=== PATIENT | male | born 1935 | race American Indian/Alaskan Native ===

== ENCOUNTER 2018-01-19 12:52 | Inpatient (IN) | payer MEDICARE ==
--- NOTE | 2018-01-19 13:59 | XRay Report ---
ROUTINE CHEST, TWO VIEWS: HISTORY: Short of breath. Cardiomegaly, pulmonary venous congestion and small bilateral pleural effusions are identified. There is no obvious pneumonia or pneumothorax. 2-lead pacemaker device is in place. The bony structures are grossly intact. IMPRESSION: Mild CHF.
[2018-01-19 14:18] LABS: Basophils % (Auto) 0.5 % (0.0-1.8); Eosinophils % (Auto) 0.1 % (0.0-4.3); Hematocrit 32.3 % (35.5-45.6); Hemoglobin 10.1 gm/dl (11.8-15.2); Lymphocytes # (Auto) 0.7 K/mm3 (1.2-5.4); Lymphocytes % (Auto) 13.3 % (13.4-35.0); Mean Corpuscular HGB Conc 31 % (32-34); Mean Corpuscular Volume 72 fl (84-94); Monocytes # (Auto) 0.6 K/mm3 (0.0-0.8); Monocytes % (Auto) 11.3 % (0.0-7.3); Platelet Count 149 K/mm3 (140-440)
[2018-01-19 14:19] LABS: Mean Corpuscular Hemoglobin 23 pg (28-32); Red Cell Distribution Width 20.5 % (13.2-15.2)
[2018-01-19 14:33] LABS: Calcium 8.5 mg/dL (8.4-10.2)
[2018-01-19 14:57] LABS: Chol/HDL Ratio 1.71 %
--- NOTE | 2018-01-19 15:15 | Emergency Department Report ---
ED Shortness of Breath HPI - General Chief Complaint: Dyspnea/Respdistress Stated Complaint: SOB/SWELLING Time Seen by Provider: 01/19/18 15:00 Source: patient, family, old records reviewed (no recent cardiac evaluation on Pharminox) Mode of arrival: Wheelchair Limitations: No Limitations - History of Present Illness Initial Comments: 82-year-old male with a past smoker history of hypertension, diabetes, sleep apnea, atrial fibrillation and arthritis presents to the hospital with complaints of generalized edema and dyspnea on exertion 1.5 weeks. Patient has been compliant with all his medications including Coumadin and diuretic. Seen and evaluated by Dr. Rosy Navarro (cards) and sent to the ER for cardiology evaluation. No chest pain reported. Dry cough reported without fever. - Related Data Home Medications Medication Instructions Recorded Confirmed Last Taken Aspirin EC [Aspirin Enteric Coated 81 mg PO DAILY 10/18/14 10/18/14 10/17/14 TAB] Atorvastatin [Lipitor] 40 mg PO DAILY 10/18/14 10/18/14 10/17/14 Carvedilol 25 mg PO BID 10/18/14 10/18/14 10/17/14 Docusate Sodium [Colace CAP] 100 mg PO PRN PRN 10/18/14 10/18/14 10/17/14 Esomeprazole Magnesium [NexIUM] 40 mg PO DAILY 10/18/14 10/18/14 10/17/14 Hydralazine HCl [Apresoline TAB] 25 mg PO TID 10/18/14 10/18/14 10/17/14 Insulin Glargine,Hum.rec.anlog 40 units SQ QPM 10/18/14 10/18/14 10/17/14 [Lantus] Potassium Chloride [Klor-Con M10] 10 meq PO DAILY 10/18/14 10/18/14 10/17/14 Warfarin Sodium 5 mg PO DAILY 10/18/14 10/18/14 10/14/14 amLODIPine/VALSARTAN [Exforge 1 each PO DAILY 10/18/14 10/18/14 10/17/14 10-320 mg Tablet] Allergies Allergy/AdvReac Type Severity Reaction Status Date / Time Penicillins Allergy Hives Verified 10/18/14 15:28 ED Review of Systems ROS: Stated complaint: SOB/SWELLING Other details as noted in HPI Comment: All other systems reviewed and negative ED Past Medical Hx - Past Medical History Hx Hypertension: Yes Hx Congestive Heart Failure: Yes Hx Diabetes: Yes (oral and insulin) Hx GERD: Yes Hx Arthritis: Yes Hx Seizures: No Hx HIV: No Additional medical history: 2l home o2. afib - Surgical History Past Surgical History?: No - Social History Smoking Status: Never Smoker Substance Use Type: None - Medications Home Medications: Home Medications Medication Instructions Recorded Confirmed Last Taken Type Aspirin EC [Aspirin Enteric Coated 81 mg PO DAILY 10/18/14 10/18/14 10/17/14 History TAB] Atorvastatin [Lipitor] 40 mg PO DAILY 10/18/14 10/18/14 10/17/14 History Carvedilol 25 mg PO BID 10/18/14 10/18/14 10/17/14 History Docusate Sodium [Colace CAP] 100 mg PO PRN PRN 10/18/14 10/18/14 10/17/14 History Esomeprazole Magnesium [NexIUM] 40 mg PO DAILY 10/18/14 10/18/14 10/17/14 History Hydralazine HCl [Apresoline TAB] 25 mg PO TID 10/18/14 10/18/14 10/17/14 History Insulin Glargine,Hum.rec.anlog 40 units SQ QPM 10/18/14 10/18/14 10/17/14 History [Lantus] Potassium Chloride [Klor-Con M10] 10 meq PO DAILY 10/18/14 10/18/14 10/17/14 History Warfarin Sodium 5 mg PO DAILY 10/18/14 10/18/14 10/14/14 History amLODIPine/VALSARTAN [Exforge 1 each PO DAILY 10/18/14 10/18/14 10/17/14 History 10-320 mg Tablet] ED Physical Exam - General Limitations: No Limitations - Other Other exam information: General: No limitations, patient is alert in no acute distress Head exam: Atraumatic, normocephalic Eyes exam: Normal appearance ENT: Moist mucous membrane, normal oropharynx Neck exam: Normal inspection, full range of motion, no meningismus nontender Respiratory exam: Positive crackles at the bases without tachypnea or accessory muscle use Cardiovascular: Normal rate and rhythm, normal heart sounds Abdomen: Soft, nondistended, and nontender, with normal bowel sounds, no rebound, or guarding : Testicular scrotal edema, uncircumcised with penile edema, no tendernesss Extremity: Full range of motion, left arm edema> right with dilated superficial vessels. Bilateral lower extremity pitting edema 2+. Back: Normal Inspection, full range of motion, no tenderness Neurologic: Alert, oriented x3, cranial nerves intact, no motor or sensory deficit Psychiatric: normal affect, normal mood Skin: Warm, dry, intact ED Course Vital Signs 01/19/18 01/19/18 01/19/18 13:12 14:59 15:00 Temperature 98.4 F Pulse Rate 71 65 102 H Respiratory 16 14 12 Rate Blood Pressure 151/71 Blood Pressure [Right] O2 Sat by Pulse 97 Oximetry 01/19/18 01/19/18 01/19/18 15:15 15:16 15:45 Temperature 97.6 F Pulse Rate 67 66 Respiratory 15 66 H 11 L Rate Blood Pressure 153/85 143/79 Blood Pressure 153/85 [Right] O2 Sat by Pulse 98 Oximetry 01/19/18 16:15 Temperature Pulse Rate 76 Respiratory 15 Rate Blood Pressure 163/70 Blood Pressure [Right] O2 Sat by Pulse Oximetry - Reevaluation(s) Reevaluation #1: 01/19/18 15:36 lasix 40mg x 1 initiated - Consultations Consultation #1: 01/19/18 15:19 case d/w Elizabeth Byrd (cards) will consult ED Medical Decision Making - Lab Data Result diagrams: 01/19/18 13:53 01/19/18 16:49 - EKG Data -: EKG Interpreted by Me (afib, low voltage) EKG shows normal: axis, intervals (qrs -42), QRS complexes (qrsd 480), ST-T waves (no stemi) Rate: normal (68) - EKG Data When compared to previous EKG there are: previous EKG unavailable - Radiology Data Radiology results: report reviewed ROUTINE CHEST, TWO VIEWS: HISTORY: Short of breath. Cardiomegaly, pulmonary venous congestion and small bilateral pleural effusions are identified. There is no obvious pneumonia or pneumothorax. 2-lead pacemaker device is in place. The bony structures are grossly intact. IMPRESSION: Mild CHF. - Medical Decision Making sob/chf exacerbation Patient denies being told that he needs to restrict his diet He appears to be taking his diuretic when necessary as directed by PCP Lasix 40 mg IV initiated Borderline renal function At risk of worsening with aggressive diuresis Elevated troponin Repeat will be necessary Patient denies chest pain No STEMI on EKG asa not given since pt is on coumadin A. fib Chronic, rate controlled On Coumadin with therapeutic inr Hypoglycemia Patient without change in mental status D50 IV and meal provided repeat glucose improved Cardiology consulted and aware of patient prior to arrival. - Differential Diagnosis CHF, bronchitis, pneumonia, renal failure, liver failure, [place] Critical Care Time: No Critical care attestation.: If time is entered above; I have spent that time in minutes in the direct care of this critically ill patient, excluding procedure time. ED Disposition Clinical Impression: CHF exacerbation, Diabetes, Elevated troponin, HTN (hypertension), Anticoagulation goal of INR 2 to 3, Chronic atrial fibrillation, Edema Disposition: OP ADMIT IP TO THIS HOSP Is pt being admited?: Yes Condition: Stable Time of Disposition: 15:22 (Dr alvarez/tiffanie)
[2018-01-19] MEDS ORDERED: LASIX IV ONE (15:36)
[2018-01-19] MEDS ORDERED: D50W (25GM) Vial IV ONE (15:44)
[2018-01-19] MEDS ORDERED: D50W (25GM) Syringe IV ONE (15:45)
[2018-01-19 15:52] LABS: INR 2.59 (0.87-1.13); Partial Thromboplastin Time 43.7 Sec. (24.2-36.6)
--- NOTE | 2018-01-19 16:04 | Consultation ---
History of Present Illness Consult date: 01/19/18 Requesting physician: JOSE EDUARDO RALPH Consult reason: congestive heart failure History of present illness: The pt is an 82 YO male with a past medical history significant for chronic systolic heart failure, nonischemic cardiomyopathy, chronic atrial fibrillation , anticoagulated with coumadin, PPM in situ, HTN, HLP, chronic respiratory failure, on home O2, dementia. He is followed in our office by Dr. Navarro. Pt presented to our office today with complaints of progressively worsening SOB, BLE swelling and scrotal swelling for the past 1.5 weeks. Pt was seen by Dr. Navarro and was referred to ED for further eval/management of acute on chronic systolic heart failure. On evaluation, pt denies any chest pain, palpitations, n /v, diaphoresis, dizziness or syncope. Echo done 06/2016 showed EF 40-45%, RV mildly enlarged, mild AR, mod MR, mod TR. LHC done 03/2010 showed mild LI, EF 30-35%. Past History Past Medical History: atrial fib, heart failure, hypertension, hyperlipidemia Past Surgical History: Other (PPM ) Social history: denies: smoking, alcohol abuse, prescription drug abuse Medications and Allergies Allergies Allergy/AdvReac Type Severity Reaction Status Date / Time Penicillins Allergy Hives Verified 10/18/14 15:28 Home Medications Medication Instructions Recorded Confirmed Last Taken Type Aspirin EC [Aspirin Enteric Coated 81 mg PO DAILY 10/18/14 10/18/14 10/17/14 History TAB] Atorvastatin [Lipitor] 40 mg PO DAILY 10/18/14 10/18/14 10/17/14 History Carvedilol 25 mg PO BID 10/18/14 10/18/14 10/17/14 History Docusate Sodium [Colace CAP] 100 mg PO PRN PRN 10/18/14 10/18/14 10/17/14 History Esomeprazole Magnesium [NexIUM] 40 mg PO DAILY 10/18/14 10/18/14 10/17/14 History Hydralazine HCl [Apresoline TAB] 25 mg PO TID 10/18/14 10/18/14 10/17/14 History Insulin Glargine,Hum.rec.anlog 40 units SQ QPM 10/18/14 10/18/14 10/17/14 History [Lantus] Potassium Chloride [Klor-Con M10] 10 meq PO DAILY 10/18/14 10/18/14 10/17/14 History Warfarin Sodium 5 mg PO DAILY 10/18/14 10/18/14 10/14/14 History amLODIPine/VALSARTAN [Exforge 1 each PO DAILY 10/18/14 10/18/14 10/17/14 History 10-320 mg Tablet] Review of Systems Constitutional: no fever, no chills Ears, nose, mouth and throat: no ear pain, no nose pain Cardiovascular: orthopnea (chronic ), edema (BLE and BUE), shortness of breath, dyspnea on exertion, paroxysmal nocturnal dyspnea, high blood pressure, leg edema, decreased exercise tolerance, no chest pain, no palpitations, no rapid/ irregular heart beat, no syncope, no lightheadedness Respiratory: shortness of breath, dyspnea on exertion, no cough, no congestion, no wheezing, no pain on inspiration Gastrointestinal: no abdominal pain, no nausea, no vomiting, no diarrhea, no constipation, no change in bowel habits Genitourinary Male: other (scrotal edema), no dysuria, no hematuria, no flank pain, no discharge, no urinary frequency, no urinary hesitancy Musculoskeletal: no neck stiffness, no neck pain Integumentary: no rash, no pruritis Neurological: no head injury, no paralysis, no weakness Psychiatric: no anxiety Endocrine: no cold intolerance, no heat intolerance Hematologic/Lymphatic: no easy bruising, no easy bleeding Allergic/Immunologic: no urticaria, no wheezing, no persistent infections Physical Examination Vital Signs Temp Pulse Resp BP Pulse Ox 98.4 F 71 16 151/71 97 01/19/18 13:12 01/19/18 13:12 01/19/18 13:12 01/19/18 13:12 01/19/18 13:12 General appearance: no acute distress HEENT: Positive: PERRL, Normocephaly, Mucus Membranes Moist Neck: Positive: neck supple, trachea midline Cardiac: Positive: irregularly irregular, S1/S2, Systolic Murmur Lungs: Positive: Decreased Breath Sounds Neuro: Positive: Grossly Intact Abdomen: Positive: Soft. Negative: Tender Male genitourinary: Positive: scrotal edema Skin: Negative: Wound Extremities: Present: +3 Edema (BLE pitting) Results 01/19/18 13:53 01/19/18 13:53 Coagulation 01/19/18 Range/Units 15:30 PT 29.5 H (12.2-14.9) Sec. INR 2.59 H (0.87-1.13) APTT 43.7 H (24.2-36.6) Sec. Lipids 01/19/18 Range/Units 13:53 Triglycerides 51 (2-149) mg/dL Cholesterol 89 (50-199) mg/dL HDL Cholesterol 52 (40-59) mg/dL Cholesterol/HDL Ratio 1.71 % CBC 01/19/18 Range/Units 13:53 WBC 4.9 (4.5-11.0) K/mm3 RBC 4.50 (3.65-5.03) M/mm3 Hgb 10.1 L (11.8-15.2) gm/dl Hct 32.3 L (35.5-45.6) % Plt Count 149 (140-440) K/mm3 Lymph # 0.7 L (1.2-5.4) K/mm3 [place] # 0.6 (0.0-0.8) K/mm3 Eos # 0.0 (0.0-0.4) K/mm3 Baso # 0.0 (0.0-0.1) K/mm3 Comprehensive Metabolic Panel 01/19/18 Range/Units 13:53 Sodium 145 (137-145) mmol/L Potassium 4.2 (3.6-5.0) mmol/L Chloride 104.1 (98-107) mmol/L Carbon Dioxide 24 (22-30) mmol/L BUN 47 H (9-20) mg/dL Creatinine 1.5 (0.8-1.5) mg/dL Glucose 58 L (75-100) mg/dL Calcium 8.5 (8.4-10.2) mg/dL - Imaging and Cardiology Echo: pending, report reviewed ( 06/2016 showed EF 40-45%, RV mildly enlarged, mild AR, mod MR, mod TR. ) Cardiac cath: report reviewed (C done 03/2010 showed mild LI, EF 30-35%. ) EKG: report reviewed, image reviewed EKG interpretations - Telemetry EKG Rhythm: Atrial Fibrillation - EKG Supraventricular dysrhythmia: atrial fibrillation Assessment and Plan Assessment: Acute on chronic systolic heart failure Nonischemic cardiomyopathy Elevated troponin x 1 set Chronic atrial fibrillation with CVR - anticoagulated with coumadin PPM in situ HTN HLP Chronic respiratory failure, on home O2 Dementia Plan: Resume home cardiac regimen. Continue diuresis with IV lasix. Obtain echo. Cont to trend Gerri. Repeat EKG in AM. Assessment and plan reviewed with pt and pt's family member at bedside. The patient has been seen in conjunction with Dr. Dominguez who agrees with the assessment and plan of care.
--- NOTE | 2018-01-19 16:48 | History and Physical Report ---
History of Present Illness Chief complaint: I cant breathe, and im swollen History of present illness: 82 YO Female with Systolic CHF, HTN, HLD, Obesity, Chronic Respiratory Failure on Home Oxygen, Atrial Fib on therapeutic anticoagulation, presents to ED for evaluation. Pt states that he has experienced shortness of breath, as well as leg swelling and scrotal swelling over the past 10 days with worsening symptoms over the past 5 days. Pt was seen and evaluated in his cardiologists office and was found to have CHF decompensation, and was sent to [facility] for further care and evaluation. Pt seen and evaluated in ED and found to have CHF decompensation, as well as Acute Respiratory failure. Pt Denies fever, chills, CP, Palpitations , NVE, Trauma, falls, syncope, productive cough, or recent ill contacts. Cardiology consulted in ED. Pt admitted to telemetry. Pt daughter at bedside. Discussed patient prognosis, and care plan with patient and daughter. Pt daughter also informed of Code status, and End of Life care. Pt desires to be a Full Code. Past History Past Medical History: atrial fib, heart failure, hypertension, hyperlipidemia Past Surgical History: Other (PPM ) Social history: denies: smoking, alcohol abuse, prescription drug abuse Family history: hypertension Medications and Allergies Allergies Allergy/AdvReac Type Severity Reaction Status Date / Time Penicillins Allergy Hives Verified 10/18/14 15:28 Home Medications Medication Instructions Recorded Confirmed Last Taken Type Aspirin EC [Aspirin Enteric Coated 81 mg PO DAILY 10/18/14 01/19/18 10/17/14 History TAB] Esomeprazole Magnesium [NexIUM] 40 mg PO DAILY 10/18/14 01/19/18 01/19/18 History Hydralazine HCl [Apresoline TAB] 25 mg PO TID 10/18/14 01/19/18 01/19/18 History Potassium Chloride [Klor-Con M10] 10 meq PO DAILY 10/18/14 01/19/18 10/17/14 History amLODIPine/VALSARTAN [Exforge 1 each PO QAM 10/18/14 01/19/18 10/17/14 History 10-320 mg Tablet] Docusate Sodium [Stool Softener] 250 mg PO PRN 01/19/18 01/19/18 Unknown History Furosemide [Lasix TAB] 40 mg PO BID 01/19/18 01/19/18 Unknown History Isosorbide Dinitrate 30 mg PO QAM 01/19/18 01/19/18 01/19/18 History Tamsulosin [Flomax] 0.4 mg PO QAM 01/19/18 01/19/18 01/19/18 History Vit D3/Folic Acid/B2/B6/B12 1.25 mg PO QWEEK 01/19/18 01/19/18 Unknown History [Folgard Tablet] Warfarin [Coumadin] 7.5 mg PO QPM 01/19/18 01/19/18 Unknown History Active Meds: Active Medications Aspirin (Halfprin Ec) 81 mg PO DAILY COUNTS INCLUDE 234 BEDS AT THE [facility] Atorvastatin Calcium (Lipitor) 40 mg PO DAILY COUNTS INCLUDE 234 BEDS AT THE [facility] Carvedilol (Coreg) 25 mg PO BID COUNTS INCLUDE 234 BEDS AT THE [facility] Furosemide (Lasix) 40 mg IV BID COUNTS INCLUDE 234 BEDS AT THE [facility] Hydralazine HCl (Apresoline) 25 mg PO TID COUNTS INCLUDE 234 BEDS AT THE [facility] Isosorbide Mononitrate (Imdur) 30 mg PO QDAY COUNTS INCLUDE 234 BEDS AT THE [facility] Valsartan (Diovan) 320 mg PO DAILY COUNTS INCLUDE 234 BEDS AT THE [facility] Warfarin Sodium (Coumadin Pharmacy To Dose) 1 each PO PKCONSULT COUNTS INCLUDE 234 BEDS AT THE [facility]; Protocol Review of Systems Constitutional: weight gain, no weight loss, no fever, no chills Ears, nose, mouth and throat: no ear pain, no ear discharge, no tinnitis, no decreased hearing, no nose pain, no nasal congestion Cardiovascular: shortness of breath, dyspnea on exertion, paroxysmal nocturnal dyspnea, leg edema, no chest pain, no palpitations, no rapid/irregular heart beat, no edema Respiratory: no cough, no cough with sputum, no excessive sputum, no hemoptysis Gastrointestinal: no nausea, no vomiting, no diarrhea, no constipation, no change in bowel habits Genitourinary Male: other (swelling), no hematuria, no flank pain, no discharge , no urinary frequency, no urinary hesitancy Rectal: no pain, no incontinence, no bleeding Musculoskeletal: no neck stiffness, no neck pain, no shooting arm pain, no arm numbness/tingling, no low back pain Integumentary: no rash, no wounds, no jaundice Neurological: no transient paralysis, no paralysis, no weakness, no parathesias , no numbness, no tingling, no seizures Psychiatric: no anxiety, no memory loss, no change in sleep habits, no sleep disturbances, no insomnia, no hypersomnia, no change in appetite Endocrine: no cold intolerance, no heat intolerance, no polyphagia, no excessive thirst, no polydipsia, no polyuria, no nocturia Hematologic/Lymphatic: no easy bruising, no easy bleeding, no lymphadenopathy, no lymphedema Allergic/Immunologic: no urticaria, no allergic rhinitis, no wheezing Exam - Constitutional Vitals: Temp Pulse Resp BP Pulse Ox 97.6 F 76 15 163/70 98 01/19/18 15:16 01/19/18 16:15 01/19/18 16:15 01/19/18 16:15 01/19/18 15:16 General appearance: Present: mild distress, obese - EENT Eyes: Present: PERRL ENT: hearing intact, clear oral mucosa - Neck Neck: Present: supple, normal ROM - Respiratory Respiratory effort: labored Respiratory: bilateral: diminished - Cardiovascular Heart Sounds: Present: S1 & S2. Absent: rub, click - Extremities Extremities: pulses symmetrical, No edema Extremity abnormal: edema Peripheral Pulses: within normal limits - Abdominal General gastrointestinal: Present: soft, non-tender, non-distended, normal bowel sounds Male genitourinary: Present: normal - Integumentary Integumentary: Present: clear, warm, dry - Musculoskeletal Musculoskeletal: generalized weakness - Psychiatric Psychiatric: appropriate mood/affect, intact judgment & insight - Neurologic Neurologic: CNII-XII intact, moves all extremities Results - Labs CBC & Chem 7: 01/19/18 13:53 01/19/18 16:49 Labs: Abnormal lab results 01/19/18 01/19/18 01/19/18 Range/Units 13:53 13:53 15:30 Hgb 10.1 L (11.8-15.2) gm/dl Hct 32.3 L (35.5-45.6) % MCV 72 L (84-94) fl MCH 23 L (28-32) pg MCHC 31 L (32-34) % RDW 20.5 H (13.2-15.2) % Lymph % (Auto) 13.3 L (13.4-35.0) % [place] % (Auto) 11.3 H (0.0-7.3) % Lymph # 0.7 L (1.2-5.4) K/mm3 Seg Neutrophils % 74.8 H (40.0-70.0) % PT 29.5 H (12.2-14.9) Sec. INR 2.59 H (0.87-1.13) APTT 43.7 H (24.2-36.6) Sec. BUN 47 H (9-20) mg/dL Glucose 58 L (75-100) mg/dL POC Glucose (70-105) Troponin T 0.127 H* (0.00-0.029) ng/mL NT-Pro-B Natriuret Pep 93282 H (0-900) pg/mL LDL Cholesterol Direct 34 L (50-130) mg/dL 01/19/18 Range/Units 15:46 Hgb (11.8-15.2) gm/dl Hct (35.5-45.6) % MCV (84-94) fl MCH (28-32) pg MCHC (32-34) % RDW (13.2-15.2) % Lymph % (Auto) (13.4-35.0) % [place] % (Auto) (0.0-7.3) % Lymph # (1.2-5.4) K/mm3 Seg Neutrophils % (40.0-70.0) % PT (12.2-14.9) Sec. INR (0.87-1.13) APTT (24.2-36.6) Sec. BUN (9-20) mg/dL Glucose (75-100) mg/dL POC Glucose 43 L (70-105) Troponin T (0.00-0.029) ng/mL NT-Pro-B Natriuret Pep (0-900) pg/mL LDL Cholesterol Direct (50-130) mg/dL Assessment and Plan - Patient Problems (1) CHF exacerbation Current Visit: Yes Status: Acute Qualifiers: Heart failure type: systolic Qualified Code(s): I50.23 - Acute on chronic systolic (congestive) heart failure Plan to address problem: Admit to telemetry, cardiology consulted in ED, Strict I/O, daily weight, monitor uop q shift to ensure negative fluid balance, afterload reduction, diuresis, supplemental oxygen, (2) Acute respiratory failure Current Visit: Yes Status: Acute Qualifiers: Respiratory failure complication: hypoxia Qualified Code(s): J96.01 - Acute respiratory failure with hypoxia Plan to address problem: supplemental oxygen, nebulizer therapy, NIPPV as clinically indicated, diuresis , Chest X ray (3) DG (obstructive sleep apnea) Current Visit: Yes Status: Acute Plan to address problem: NIPPV as clinically indicated, (4) HTN (hypertension) Current Visit: Yes Status: Acute Qualifiers: Hypertension type: essential hypertension Qualified Code(s): I10 - Essential (primary) hypertension Plan to address problem: monitor bp q shift, resume prehospital antihypertensive therapy (5) GERD (gastroesophageal reflux disease) Current Visit: Yes Status: Acute Qualifiers: Esophagitis presence: without esophagitis Qualified Code(s): K21.9 - Gastro -esophageal reflux disease without esophagitis Plan to address problem: ppi therapy (6) Atrial fibrillation Current Visit: Yes Status: Acute Qualifiers: Atrial fibrillation type: persistent Qualified Code(s): I48.1 - Persistent atrial fibrillation Plan to address problem: Therapeutic anticoagulation, cardiology consulted, (7) DVT prophylaxis Current Visit: Yes Status: Acute Plan to address problem: scd to ble while in bed.
[2018-01-19] MEDS ORDERED: TYLENOL PO PRN (16:54)
[2018-01-19] MEDS ORDERED: ZOFRAN IV PRN (16:54)
[2018-01-19] MEDS ORDERED: SODIUM CHLORIDE FLUSH SYRINGE 10 ML IV PRN (16:54)
[2018-01-19] MEDS ORDERED: COLACE PO PRN (16:56)
[2018-01-19] MEDS ORDERED: LANTUS SUB-Q SCH (18:00)
[2018-01-19] MEDS: APRESOLINE PO SCH (20:35)
[2018-01-19] MEDS: LASIX IV SCH (22:30)
[2018-01-19] MEDS: SODIUM CHLORIDE FLUSH SYRINGE 10 ML IV SCH (22:30)
[2018-01-19] MEDS: COREG PO SCH (22:30)
[2018-01-20 07:31] LABS: Calcium 8.2 mg/dL (8.4-10.2)
[2018-01-20 08:19] LABS: INR 2.71 (0.87-1.13)
[2018-01-20] MEDS: APRESOLINE PO SCH ×3 (10:27→21:30)
[2018-01-20] MEDS: DIOVAN PO SCH (10:28)
[2018-01-20] MEDS: HALFPRIN EC PO SCH (10:28)
[2018-01-20] MEDS: COREG PO SCH ×2 (10:28→22:45)
[2018-01-20] MEDS: K-DUR PO SCH (10:29)
[2018-01-20] MEDS: LASIX IV SCH ×2 (10:29→22:45)
[2018-01-20] MEDS: IMDUR PO SCH (10:29)
[2018-01-20] MEDS: SODIUM CHLORIDE FLUSH SYRINGE 10 ML IV SCH ×2 (10:30→22:45)
--- NOTE | 2018-01-20 12:53 | Progress Note ---
Assessment and Plan Assessment: Acute on chronic systolic heart failure Nonischemic cardiomyopathy Elevated troponin x 1 set Chronic atrial fibrillation with CVR - anticoagulated with coumadin PPM in situ HTN HLP Chronic respiratory failure, on home O2 Dementia Plan: Cont present cardiac regimen. Obtain echo. Assessment and plan reviewed with pt at bedside. The patient has been seen in conjunction with Dr. NARCISO Harris who agrees with the assessment and plan of care. Subjective Date of service: 01/20/18 Principal diagnosis: HF Interval history: pt resting comfortably in bed, states he is feeling better today. Objective Last Vital Signs Temp 98.0 F 01/20/18 08:34 Pulse 68 01/20/18 12:08 Resp 18 01/20/18 10:00 BP 130/58 01/20/18 08:34 Pulse Ox 98 01/20/18 10:00 - Physical Examination General: No Apparent Distress HEENT: Positive: PERRL, Normocephaly, Mucus Membranes Moist Neck: Positive: neck supple, trachea midline Cardiac: Positive: irregularly irregular, S1/S2 Lungs: Positive: Decreased Breath Sounds Neuro: Positive: Grossly Intact Abdomen: Positive: Soft. Negative: Tender Skin: Negative: Wound Extremities: Present: +3 Edema (BLE pitting) - Labs and Meds Cardiac Enzymes 01/19/18 Range/Units 18:31 CK-MB (CK-2) 14.0 H (0.0-4.0) ng/mL Coagulation 01/19/18 01/20/18 Range/Units 15:30 07:50 PT 29.5 H 30.6 H (12.2-14.9) Sec. INR 2.59 H 2.71 H (0.87-1.13) APTT 43.7 H (24.2-36.6) Sec. Lipids 01/19/18 Range/Units 13:53 Triglycerides 51 (2-149) mg/dL Cholesterol 89 (50-199) mg/dL HDL Cholesterol 52 (40-59) mg/dL Cholesterol/HDL Ratio 1.71 % CBC 01/19/18 Range/Units 13:53 WBC 4.9 (4.5-11.0) K/mm3 RBC 4.50 (3.65-5.03) M/mm3 Hgb 10.1 L (11.8-15.2) gm/dl Hct 32.3 L (35.5-45.6) % Plt Count 149 (140-440) K/mm3 Lymph # 0.7 L (1.2-5.4) K/mm3 [place] # 0.6 (0.0-0.8) K/mm3 Eos # 0.0 (0.0-0.4) K/mm3 Baso # 0.0 (0.0-0.1) K/mm3 Comprehensive Metabolic Panel 01/19/18 01/19/18 01/20/18 Range/Units 13:53 16:49 06:24 Sodium 145 144 (137-145) mmol/L Potassium 4.2 3.6 (3.6-5.0) mmol/L Chloride 104.1 106.5 (98-107) mmol/L Carbon Dioxide 24 25 (22-30) mmol/L BUN 47 H 45 H (9-20) mg/dL Creatinine 1.5 1.6 H (0.8-1.5) mg/dL Glucose 58 L 43 L 84 (75-100) mg/dL Calcium 8.5 8.2 L (8.4-10.2) mg/dL - Imaging and Cardiology EKG: report reviewed, image reviewed Echo: pending, report reviewed ( 06/2016 showed EF 40-45%, RV mildly enlarged, mild AR, mod MR, mod TR. ) Cardiac cath: report reviewed ([facility] done 03/2010 showed mild LI, EF 30-35%. ) - Telemetry EKG Rhythm: Atrial Fibrillation
[2018-01-20] MEDS: COUMADIN PO SCH (16:24)
[2018-01-20] MEDS: PROVENTIL IH PRN (21:15)
[2018-01-20] MEDS: LANTUS SUB-Q SCH (22:45)
--- NOTE | 2018-01-20 22:46 | Progress Note ---
Assessment and Plan Assessment and plan: 82 YO Female with Systolic CHF, HTN, HLD, Obesity, Chronic Respiratory Failure on Home Oxygen, Atrial Fib on therapeutic anticoagulation, presents to ED for evaluation. Pt states that he has experienced shortness of breath, as well as leg swelling and scrotal swelling over the past 10 days with worsening symptoms over the past 5 days. Pt was seen and evaluated in his cardiologists office and was found to have CHF decompensation, and was sent to [facility] for further care and evaluation. Pt seen and evaluated in ED and found to have CHF decompensation, as well as Acute Respiratory failure. Pt Denies fever, chills, CP, Palpitations , NVE, Trauma, falls, syncope, productive cough, or recent ill contacts. Cardiology consulted in ED. Pt admitted to telemetry. Pt daughter at bedside. Discussed patient prognosis, and care plan with patient and daughter. Pt daughter also informed of Code status, and End of Life care. Pt desires to be a Full Code. (1) acute and chronic systolic CHF exacerbation/nonischemic cardiomyopathy/ppm Current Visit: Yes Status: Acute Qualifiers: Heart failure type: systolic Qualified Code(s): I50.23 - Acute on chronic systolic (congestive) heart failure Plan to address problem: Cardiology bruits noted, Strict I/O, daily weight, monitor uop q shift to ensure negative fluid balance, afterload reduction, diuresis, supplemental oxygen, Await echo results (2) Acute on chronic respiratory failure Current Visit: Yes Status: Acute Qualifiers: Respiratory failure complication: hypoxia Qualified Code(s): J96.01 - Acute respiratory failure with hypoxia Plan to address problem: supplemental oxygen, nebulizer therapy, NIPPV as clinically indicated, diuresis , Chest X ray-shows volume overload clinical improvement noted with Lasix. G Patient on home O2 supplementation (3) DG (obstructive sleep apnea) Current Visit: Yes Status: Acute Plan to address problem: NIPPV as clinically indicated, (4) HTN (hypertension) Current Visit: Yes Status: Acute Qualifiers: Hypertension type: essential hypertension Qualified Code(s): I10 - Essential (primary) hypertension Plan to address problem: monitor bp q shift, resume prehospital antihypertensive therapy (5) GERD (gastroesophageal reflux disease) Current Visit: Yes Status: Acute Qualifiers: Esophagitis presence: without esophagitis Qualified Code(s): K21.9 - Gastro -esophageal reflux disease without esophagitis Plan to address problem: ppi therapy (6) chronic Atrial fibrillation Current Visit: Yes Status: Acute Qualifiers: Atrial fibrillation type: persistent Qualified Code(s): I48.1 - Persistent atrial fibrillation Plan to address problem: Therapeutic anticoagulation, cardiology consulted, (7) dementia Stable continue current medications (8)DVT prophylaxis Current Visit: Yes Status: Acute Plan to address problem: scd to ble while in bed. History Interval history: Patient is examined today, with mild acute distress secondary to some shortness of breath. Hospitalist Physical - Physical exam Narrative exam: VITAL SIGNS: Reviewed. GENERAL: The patient appeared chronically ill otherwise above. Distress. Vital signs as documented. HEAD: No signs of head trauma. EYES: Pupils are equal. Extraocular motions intact. EARS: Hearing grossly intact. MOUTH: Oropharynx is normal. NECK: No adenopathy, no JVD. CHEST: Chest with diminished breath sounds bilaterally. No wheezes, rales, or rhonchi. CARDIAC: Regular rate and rhythm. S1 and S2, without murmurs, gallops, or rubs. VASCULAR: Peripheral pulses Edema. Peripheral pulses normal and equal in all extremities. ABDOMEN: Soft, without detectable tenderness. No sign of distention. No rebound or guarding, and no masses palpated. Bowel Sounds normal. MUSCULOSKELETAL: Good range of motion of all major joints. Extremities without clubbing, cyanosis. 3+ edema. NEUROLOGIC EXAM: Awake and oriented to person place. No focal sensory or strength deficits. Speech normal. Follows commands. PSYCHIATRIC: Mood normal. SKIN: No rash or lesions. - Constitutional Vitals: Temp Pulse Resp BP Pulse Ox 98.5 F 50 L 18 130/65 98 01/20/18 19:50 01/20/18 21:28 01/20/18 21:28 01/20/18 19:50 01/20/18 21:45 General appearance: Present: mild distress, obese Results - Labs CBC & Chem 7: 01/19/18 13:53 01/20/18 06:24 Labs: Laboratory Last Values WBC 4.9 K/mm3 (4.5-11.0) 01/19/18 13:53 RBC 4.50 M/mm3 (3.65-5.03) 01/19/18 13:53 Hgb 10.1 gm/dl (11.8-15.2) L 01/19/18 13:53 Hct 32.3 % (35.5-45.6) L 01/19/18 13:53 MCV 72 fl (84-94) L 01/19/18 13:53 MCH 23 pg (28-32) L 01/19/18 13:53 MCHC 31 % (32-34) L 01/19/18 13:53 RDW 20.5 % (13.2-15.2) H 01/19/18 13:53 Plt Count 149 K/mm3 (140-440) 01/19/18 13:53 Lymph % (Auto) 13.3 % (13.4-35.0) L 01/19/18 13:53 [place] % (Auto) 11.3 % (0.0-7.3) H 01/19/18 13:53 Eos % (Auto) 0.1 % (0.0-4.3) 01/19/18 13:53 Baso % (Auto) 0.5 % (0.0-1.8) 01/19/18 13:53 Lymph # 0.7 K/mm3 (1.2-5.4) L 01/19/18 13:53 [place] # 0.6 K/mm3 (0.0-0.8) 01/19/18 13:53 Eos # 0.0 K/mm3 (0.0-0.4) 01/19/18 13:53 Baso # 0.0 K/mm3 (0.0-0.1) 01/19/18 13:53 Seg Neutrophils % 74.8 % (40.0-70.0) H 01/19/18 13:53 Seg Neutrophils # 3.7 K/mm3 (1.8-7.7) 01/19/18 13:53 PT 30.6 Sec. (12.2-14.9) H 01/20/18 07:50 INR 2.71 (0.87-1.13) H 01/20/18 07:50 APTT 43.7 Sec. (24.2-36.6) H 01/19/18 15:30 Sodium 144 mmol/L (137-145) 01/20/18 06:24 Potassium 3.6 mmol/L (3.6-5.0) 01/20/18 06:24 Chloride 106.5 mmol/L (98-107) 01/20/18 06:24 Carbon Dioxide 25 mmol/L (22-30) 01/20/18 06:24 Anion Gap 16 mmol/L 01/20/18 06:24 BUN 45 mg/dL (9-20) H 01/20/18 06:24 Creatinine 1.6 mg/dL (0.8-1.5) H 01/20/18 06:24 Estimated GFR 50 ml/min 01/20/18 06:24 BUN/Creatinine Ratio 28 % 01/20/18 06:24 Glucose 84 mg/dL (75-100) 01/20/18 06:24 POC Glucose 181 (70-105) H 01/20/18 21:55 Calcium 8.2 mg/dL (8.4-10.2) L 01/20/18 06:24 Total Creatine Kinase 457 units/L (55-170) H 01/20/18 17:57 CK-MB (CK-2) 14.0 ng/mL (0.0-4.0) H 01/19/18 18:31 CK-MB (CK-2) Rel Index 1.9 (0-4) 01/19/18 18:31 Troponin T 0.124 ng/mL (0.00-0.029) H* 01/19/18 18:31 NT-Pro-B Natriuret Pep 75391 pg/mL (0-900) H 01/19/18 13:53 Triglycerides 51 mg/dL (2-149) 01/19/18 13:53 Cholesterol 89 mg/dL (50-199) 01/19/18 13:53 LDL Cholesterol Direct 34 mg/dL (50-130) L 01/19/18 13:53 HDL Cholesterol 52 mg/dL (40-59) 01/19/18 13:53 Cholesterol/HDL Ratio 1.71 % 01/19/18 13:53 - Imaging and Cardiology Chest x-ray: image reviewed (congestion)
[2018-01-21 08:00] LABS: INR 2.73 (0.87-1.13)
[2018-01-21] MEDS: APRESOLINE PO SCH ×3 (10:00→21:37)
[2018-01-21] MEDS: DIOVAN PO SCH (11:21)
[2018-01-21] MEDS: IMDUR PO SCH (11:21)
[2018-01-21] MEDS: HALFPRIN EC PO SCH (11:22)
[2018-01-21] MEDS: COREG PO SCH ×2 (11:22→21:37)
[2018-01-21] MEDS: K-DUR PO SCH (11:22)
[2018-01-21] MEDS: LASIX IV SCH ×2 (11:23→23:06)
[2018-01-21] MEDS: PROVENTIL IH PRN (11:39)
[2018-01-21] MEDS: SODIUM CHLORIDE FLUSH SYRINGE 10 ML IV SCH (12:00)
--- NOTE | 2018-01-21 14:15 | Progress Note ---
Assessment and Plan Assessment: Acute on chronic systolic heart failure Nonischemic cardiomyopathy NSTEMI type II Chronic atrial fibrillation with CVR - anticoagulated with coumadin PPM in situ HTN HLP Chronic respiratory failure, on home O2 Dementia Plan: Cont present cardiac regimen. Renal indices are slowly trending upwards. Monitor closely. Await echo. Assessment and plan reviewed with pt at bedside. The patient has been seen in conjunction with Dr. NARCISO Harris who agrees with the assessment and plan of care. Subjective Date of service: 01/21/18 Principal diagnosis: HF Interval history: pt resting comfortably in bed, wheezing, states he does not feel well today. Objective Last Vital Signs Temp 97.7 F 01/21/18 07:45 Pulse 50 L 01/21/18 11:50 Resp 19 01/21/18 11:50 BP 135/60 01/21/18 07:45 Pulse Ox 100 01/21/18 07:45 - Physical Examination General: No Apparent Distress HEENT: Positive: PERRL, Normocephaly, Mucus Membranes Moist Neck: Positive: neck supple, trachea midline Cardiac: Positive: Reg Rate and Rhythm, S1/S2 Lungs: Positive: Wheezes Neuro: Positive: Grossly Intact Abdomen: Positive: Soft. Negative: Tender Skin: Negative: Wound Extremities: Present: +3 Edema (BLE pitting) - Labs and Meds Coagulation 01/21/18 Range/Units 06:47 PT 30.8 H (12.2-14.9) Sec. INR 2.73 H (0.87-1.13) Comprehensive Metabolic Panel 01/21/18 Range/Units 06:47 Sodium 147 H (137-145) mmol/L Potassium 3.5 L (3.6-5.0) mmol/L Chloride 106.4 (98-107) mmol/L Carbon Dioxide 28 (22-30) mmol/L BUN 48 H (9-20) mg/dL Creatinine 1.7 H (0.8-1.5) mg/dL Glucose 40 L (75-100) mg/dL Calcium 8.0 L (8.4-10.2) mg/dL - Imaging and Cardiology EKG: report reviewed, image reviewed Echo: pending, report reviewed ( 06/2016 showed EF 40-45%, RV mildly enlarged, mild AR, mod MR, mod TR. ) Cardiac cath: report reviewed ([facility] done 03/2010 showed mild LI, EF 30-35%. )
--- NOTE | 2018-01-21 18:22 | Consultation ---
History of Present Illness - Reason for Consult Consult date: 01/21/18 acute renal failure Requesting physician: NIDA HENRY - History of Present Illness 82-year-old male with a history of diabetes mellitus, hypertension, obstructive sleep apnea syndrome, atrial fibrillation on oral anticoagulation and congestive heart with most recent ejection fraction of 40-45% June 2016. Presents on account of progressive worsening generalized edema with shortness of breath of one and half weeks duration. Also admits to a dry cough and question fever. Patient says he was having "nervous pain". I was not breathing right. Admits to nonproductive cough. He is a poor historian due to dementia so history is mostly obtained from a review of the records. Past History Past Medical History: atrial fib, arthritis, diabetes, heart failure, hypertension, hyperlipidemia, other (obstructive sleep apnea syndrome, chronic respiratory failure on home oxygen, dementia) Past Surgical History: Other (PPM , back surgery per Patient) Social history: lives with family (with son and [id number] per Patient). denies: smoking, alcohol abuse, prescription drug abuse Family history: hypertension, other (patient says his parents and siblings are and does not know the cause of ) Medications and Allergies Allergies Allergy/AdvReac Type Severity Reaction Status Date / Time Penicillins Allergy Hives Verified 10/18/14 15:28 Home Medications Medication Instructions Recorded Confirmed Last Taken Type Aspirin EC [Aspirin Enteric Coated 81 mg PO DAILY 10/18/14 01/19/18 10/17/14 History TAB] Esomeprazole Magnesium [NexIUM] 40 mg PO DAILY 10/18/14 01/19/18 01/19/18 History Hydralazine HCl [Apresoline TAB] 25 mg PO TID 10/18/14 01/19/18 01/19/18 History Potassium Chloride [Klor-Con M10] 10 meq PO DAILY 10/18/14 01/19/18 10/17/14 History amLODIPine/VALSARTAN [Exforge 1 each PO QAM 10/18/14 01/19/18 10/17/14 History 10-320 mg Tablet] Docusate Sodium [Stool Softener] 250 mg PO PRN 01/19/18 01/19/18 Unknown History Furosemide [Lasix TAB] 40 mg PO BID 01/19/18 01/19/18 Unknown History Isosorbide Dinitrate 30 mg PO QAM 01/19/18 01/19/18 01/19/18 History Tamsulosin [Flomax] 0.4 mg PO QAM 01/19/18 01/19/18 01/19/18 History Vit D3/Folic Acid/B2/B6/B12 1.25 mg PO QWEEK 01/19/18 01/19/18 Unknown History [Folgard Tablet] Warfarin [Coumadin] 7.5 mg PO QPM 01/19/18 01/19/18 Unknown History Active Meds: Active Medications Acetaminophen (Tylenol) 650 mg PO Q4H PRN PRN Reason: Pain MILD(1-3)/Fever >100.5/PIERCE Albuterol (Proventil) 2.5 mg IH Q4HRT PRN PRN Reason: Shortness Of Breath Last Admin: 01/21/18 11:39 Dose: 2.5 mg Aspirin (Halfprin Ec) 81 mg PO DAILY [facility] Last Admin: 01/21/18 11:22 Dose: 81 mg Atorvastatin Calcium (Lipitor) 40 mg PO DAILY [facility] Last Admin: 01/21/18 11:22 Dose: 40 mg Carvedilol (Coreg) 25 mg PO BID [facility] Last Admin: 01/21/18 11:22 Dose: 25 mg Docusate Sodium (Colace) 100 mg PO PRN PRN PRN Reason: stool softener Furosemide (Lasix) 40 mg IV BID [facility] Last Admin: 01/21/18 11:23 Dose: 40 mg Hydralazine HCl (Apresoline) 25 mg PO TID [facility] Last Admin: 01/21/18 16:00 Dose: 25 mg Insulin Glargine (Lantus) 40 units SUB-Q QHS [facility] Last Admin: 01/20/18 22:45 Dose: 40 units Isosorbide Mononitrate (Imdur) 30 mg PO QDAY [facility] Last Admin: 01/21/18 11:21 Dose: 30 mg Methylprednisolone Sodium Succinate (Solu-Medrol) 60 mg IV Q8HR [facility] Last Admin: 01/21/18 16:30 Dose: 60 mg Ondansetron HCl (Zofran) 4 mg IV Q8H PRN PRN Reason: Nausea And Vomiting Potassium Chloride (K-Dur) 10 meq PO DAILY [facility] Last Admin: 01/21/18 11:22 Dose: 10 meq Sodium Chloride (Sodium Chloride Flush Syringe 10 Ml) 10 ml IV BID [facility] Last Admin: 01/21/18 12:00 Dose: 10 ml Sodium Chloride (Sodium Chloride Flush Syringe 10 Ml) 10 ml IV PRN PRN PRN Reason: LINE FLUSH Valsartan (Diovan) 320 mg PO DAILY [facility] Last Admin: 01/21/18 11:21 Dose: 320 mg Warfarin Sodium (Coumadin Pharmacy To Dose) 1 each PO PKCONSULT [facility]; Protocol Warfarin Sodium (Coumadin) 5 mg PO DAILY@1700 [facility]; Protocol Last Admin: 01/20/18 16:24 Dose: 5 mg Review of Systems ROS unobtainable: due to mental status (due to dementia) Exam - Vital Signs Vital signs: Vital Signs Temp Pulse Resp BP Pulse Ox 98.4 F 71 16 151/71 97 01/19/18 13:12 01/19/18 13:12 01/19/18 13:12 01/19/18 13:12 01/19/18 13:12 - Physical Exam Narrative exam: Elderly -[place] lying in Bed in no acute distress HEENT: NCAT, pink oral mucous membrane Neck: Supple, no venous distention CVS: S1S2 RRR with no murmur, rub or gallop Chest: Diminished breath sounds with faint rhonchi Abdomen: Protuberant, soft, mild edema, nontender, no organomegaly, bowel sounds are present Extremities: 2-3+ edema extending up to the thighs Skin warm and dry with no rash. Pigmentary changes in legs Neuro: Awake, alert no focal deficits and memory impairment Results - Lab Results 01/19/18 13:53 01/21/18 06:47 Most recent lab results Calcium 8.0 mg/dL (8.4-10.2) L 01/21/18 06:47 Assessment and Plan - Patient Problems (1) Other acute kidney failure Current Visit: Yes Status: Acute Plan to address problem: Suspect acute kidney injury Pre-renal azotemia secondary to acute Cardiorenal syndrome/diuresis. Get urinalysis. Follow-up kidney or bladder. FOLLOW-UP ELECTROLYTES AND RENAL FUNCTION WITH GENTLE DIURESIS. (2) Hypernatremia Current Visit: Yes Status: Acute Plan to address problem: Add thiazide diuretic. Follow up Sodium (3) Hypokalemia Current Visit: Yes Status: Acute Plan to address problem: Supplement potassium and follow-up level. May need to add a small dose of aLDOSTERONE antagonist if blood pressure will tolerate (4) Acute on chronic systolic heart failure Current Visit: Yes Status: Acute Plan to address problem: Continue IV diuretics. We'll add thiazide diuretic (5) Anemia Current Visit: Yes Status: Acute Plan to address problem: Follow-up hemoglobin (6) Type 2 diabetes mellitus Current Visit: Yes Status: Acute Plan to address problem: Blood sugar management by primary attending (7) Atrial fibrillation Current Visit: Yes Status: Chronic Plan to address problem: Rate control/anticoagulation per cardiology (8) HTN (hypertension) Current Visit: Yes Status: Chronic Plan to address problem: Follow blood pressure on current medications
[2018-01-21] MEDS: COUMADIN PO SCH (18:37)
[2018-01-21] MEDS: ZAROXOLYN PO SCH (21:37)
--- NOTE | 2018-01-21 21:50 | Progress Note ---
Assessment and Plan Assessment and plan: 82 YO Female with Systolic CHF, HTN, HLD, Obesity, Chronic Respiratory Failure on Home Oxygen, Atrial Fib on therapeutic anticoagulation, presents to ED for evaluation. Pt states that he has experienced shortness of breath, as well as leg swelling and scrotal swelling over the past 10 days with worsening symptoms over the past 5 days. Pt was seen and evaluated in his cardiologists office and was found to have CHF decompensation, and was sent to [facility] for further care and evaluation. Pt seen and evaluated in ED and found to have CHF decompensation, as well as Acute Respiratory failure. Pt Denies fever, chills, CP, Palpitations , NVE, Trauma, falls, syncope, productive cough, or recent ill contacts. Cardiology consulted in ED. Pt admitted to telemetry. Pt daughter at bedside. Discussed patient prognosis, and care plan with patient and daughter. Pt daughter also informed of Code status, and End of Life care. Pt desires to be a Full Code. (1) acute and chronic systolic CHF exacerbation/nonischemic cardiomyopathy/ppm Current Visit: Yes Status: Acute Qualifiers: Heart failure type: systolic Qualified Code(s): I50.23 - Acute on chronic systolic (congestive) heart failure Plan to address problem: Cardiology input noted, Strict I/O, daily weight, monitor uop q shift to ensure negative fluid balance, afterload reduction, diuresis, supplemental oxygen, Await echo results (2) Acute on chronic respiratory failure Current Visit: Yes Status: Acute Qualifiers: Respiratory failure complication: hypoxia Qualified Code(s): J96.01 - Acute respiratory failure with hypoxia Plan to address problem: supplemental oxygen, nebulizer therapy, NIPPV as clinically indicated, diuresis , Chest X ray-shows volume overload clinical improvement noted with Lasix. 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 nephrology consult (5)HTN (hypertension) Current Visit: Yes Status: Acute Qualifiers: Hypertension type: essential hypertension Qualified Code(s): I10 - Essential (primary) hypertension Plan to address problem: monitor bp q shift, resume prehospital antihypertensive therapy (6) GERD (gastroesophageal reflux disease) Current Visit: Yes Status: Acute Qualifiers: Esophagitis presence: without esophagitis Qualified Code(s): K21.9 - Gastro -esophageal reflux disease without esophagitis Plan to address problem: ppi therapy (7) chronic Atrial fibrillation Current Visit: Yes Status: Acute Qualifiers: Atrial fibrillation type: persistent Qualified Code(s): I48.1 - Persistent atrial fibrillation Plan to address problem: Therapeutic anticoagulation, cardiology consulted, (8) dementia Stable continue current medications (9)DVT prophylaxis Current Visit: Yes Status: Acute Plan to address problem: scd to ble while in bed. History Interval history: Patient is examined today, with mild acute distress secondary to some shortness of breath and still Persistent with audible wheezing noted today. Hospitalist Physical - Physical exam Narrative exam: VITAL SIGNS: Reviewed. GENERAL: The patient appeared chronically ill otherwise above. Distress. Vital signs as documented. HEAD: No signs of head trauma. EYES: Pupils are equal. Extraocular motions intact. EARS: Hearing grossly intact. MOUTH: Oropharynx is normal. NECK: No adenopathy, no JVD. CHEST: Chest with diminished breath sounds bilaterally. wheezing and no rales , or rhonchi. CARDIAC: Regular rate and rhythm. S1 and S2, without murmurs, gallops, or rubs. VASCULAR: Peripheral pulses. 3+Edema. Peripheral pulses normal and equal in all extremities. ABDOMEN: Soft, without detectable tenderness. No sign of distention. No rebound or guarding, and no masses palpated. Bowel Sounds normal. MUSCULOSKELETAL: Good range of motion of all major joints. Extremities without clubbing, cyanosis. 3+ edema. NEUROLOGIC EXAM: Awake and oriented to person place. No focal sensory or strength deficits. Speech normal. Follows commands. PSYCHIATRIC: Mood anxious SKIN: No rash or lesions. - Constitutional Vitals: Temp Pulse Resp BP Pulse Ox 98.4 F 58 L 18 128/62 100 01/21/18 19:55 01/21/18 21:37 01/21/18 19:55 01/21/18 19:55 01/21/18 19:55 General appearance: Present: mild distress, obese Results - Labs CBC & Chem 7: 01/19/18 13:53 01/21/18 06:47 Labs: Laboratory Last Values WBC 4.9 K/mm3 (4.5-11.0) 01/19/18 13:53 RBC 4.50 M/mm3 (3.65-5.03) 01/19/18 13:53 Hgb 10.1 gm/dl (11.8-15.2) L 01/19/18 13:53 Hct 32.3 % (35.5-45.6) L 01/19/18 13:53 MCV 72 fl (84-94) L 01/19/18 13:53 MCH 23 pg (28-32) L 01/19/18 13:53 MCHC 31 % (32-34) L 01/19/18 13:53 RDW 20.5 % (13.2-15.2) H 01/19/18 13:53 Plt Count 149 K/mm3 (140-440) 01/19/18 13:53 Lymph % (Auto) 13.3 % (13.4-35.0) L 01/19/18 13:53 [place] % (Auto) 11.3 % (0.0-7.3) H 01/19/18 13:53 Eos % (Auto) 0.1 % (0.0-4.3) 01/19/18 13:53 Baso % (Auto) 0.5 % (0.0-1.8) 01/19/18 13:53 Lymph # 0.7 K/mm3 (1.2-5.4) L 01/19/18 13:53 [place] # 0.6 K/mm3 (0.0-0.8) 01/19/18 13:53 Eos # 0.0 K/mm3 (0.0-0.4) 01/19/18 13:53 Baso # 0.0 K/mm3 (0.0-0.1) 01/19/18 13:53 Seg Neutrophils % 74.8 % (40.0-70.0) H 01/19/18 13:53 Seg Neutrophils # 3.7 K/mm3 (1.8-7.7) 01/19/18 13:53 PT 30.8 Sec. (12.2-14.9) H 01/21/18 06:47 INR 2.73 (0.87-1.13) H 01/21/18 06:47 APTT 43.7 Sec. (24.2-36.6) H 01/19/18 15:30 Sodium 147 mmol/L (137-145) H 01/21/18 06:47 Potassium 3.5 mmol/L (3.6-5.0) L 01/21/18 06:47 Chloride 106.4 mmol/L (98-107) 01/21/18 06:47 Carbon Dioxide 28 mmol/L (22-30) 01/21/18 06:47 Anion Gap 16 mmol/L 01/21/18 06:47 BUN 48 mg/dL (9-20) H 01/21/18 06:47 Creatinine 1.7 mg/dL (0.8-1.5) H 01/21/18 06:47 Estimated GFR 47 ml/min 01/21/18 06:47 BUN/Creatinine Ratio 28 % 01/21/18 06:47 Glucose 40 mg/dL (75-100) L 01/21/18 06:47 POC Glucose 150 (70-105) H 01/21/18 21:39 Calcium 8.0 mg/dL (8.4-10.2) L 01/21/18 06:47 Total Creatine Kinase 457 units/L (55-170) H 01/20/18 17:57 CK-MB (CK-2) 14.0 ng/mL (0.0-4.0) H 01/19/18 18:31 CK-MB (CK-2) Rel Index 1.9 (0-4) 01/19/18 18:31 Troponin T 0.124 ng/mL (0.00-0.029) H* 01/19/18 18:31 NT-Pro-B Natriuret Pep 22915 pg/mL (0-900) H 01/19/18 13:53 Triglycerides 51 mg/dL (2-149) 01/19/18 13:53 Cholesterol 89 mg/dL (50-199) 01/19/18 13:53 LDL Cholesterol Direct 34 mg/dL (50-130) L 01/19/18 13:53 HDL Cholesterol 52 mg/dL (40-59) 01/19/18 13:53 Cholesterol/HDL Ratio 1.71 % 01/19/18 13:53
[2018-01-21] MEDS: LANTUS SUB-Q SCH (22:36)
[2018-01-22] MEDS: SODIUM CHLORIDE FLUSH SYRINGE 10 ML IV SCH ×3 (02:29→22:31)
[2018-01-22 08:26] LABS: Bacteria,Urine 1+ /HPF (Negative); Bilirubin,Urine NEG (Negative); Blood,Urine LG (Negative); Color,Urine Yellow (Yellow); Hyaline Casts,Urine 60 /LPF; Mucus,Urine FEW /HPF; Protein,Urine <15 mg/dL mg/dL (Negative); Urobilinogen,Urine < 2.0 mg/dL (<2.0)
[2018-01-22 08:31] LABS: RBC,Urine > 182.0 /HPF (0.0-6.0)
[2018-01-22 08:44] LABS: Creatine Kinase MB 8.1 ng/mL (0.0-4.0)
[2018-01-22 08:46] LABS: Calcium 8.3 mg/dL (8.4-10.2)
[2018-01-22 09:15] LABS: Creatinine,Urine 47.7 mg/dL (0.1-20.0)
[2018-01-22 09:45] LABS: INR 2.45 (0.87-1.13)
[2018-01-22] MEDS: K-DUR PO SCH (09:50)
[2018-01-22] MEDS: DIOVAN PO SCH (09:50)
[2018-01-22] MEDS: IMDUR PO SCH (09:50)
[2018-01-22] MEDS: ZAROXOLYN PO SCH (09:51)
[2018-01-22] MEDS: APRESOLINE PO SCH ×3 (09:51→22:30)
[2018-01-22] MEDS: COREG PO SCH ×2 (09:53→22:25)
[2018-01-22] MEDS: HALFPRIN EC PO SCH (09:55)
[2018-01-22] MEDS: LASIX IV SCH (09:57)
--- NOTE | 2018-01-22 10:25 | Consultation ---
History of Present Illness Consult date: 01/22/18 Reason for consult: dyspnea, COPD, other (congestive heart failure) History of present illness: 82-year-old male admitted to the hospital with history of progressive dyspnea for 1 week onset associated with lower extremity swelling. The patient is along his room and he is a poor historian so information is also obtained from record review. Report, he came in with shortness of breath, lower strength is swelling, what appears to be orthopnea and dyspnea upon exertion. Symptoms onset is slow. No chest pain reported. No cough or hemoptysis or JENNIFER. Chart review shows prior history A. fib, congestive heart failure with W DG, which is not on oxygen or CPAP therapy according to the patient. Reportedly never had a sleep study. Snores and short of breath at night but this is not fully confirmed, no family members available Past History Past Medical History: atrial fib, arthritis, diabetes, heart failure, hypertension, hyperlipidemia, other (obstructive sleep apnea syndrome, chronic respiratory failure on home oxygen, dementia) Past Surgical History: Other (PPM , back surgery per Patient) Social history: lives with family (with son and [id number] per Patient). denies: smoking, alcohol abuse, prescription drug abuse Family history: hypertension, other (patient says his parents and siblings are and does not know the cause of ) Medications and Allergies Allergies Allergy/AdvReac Type Severity Reaction Status Date / Time Penicillins Allergy Hives Verified 10/18/14 15:28 Home Medications Medication Instructions Recorded Confirmed Last Taken Type Aspirin EC [Aspirin Enteric Coated 81 mg PO DAILY 10/18/14 01/19/18 10/17/14 History TAB] Esomeprazole Magnesium [NexIUM] 40 mg PO DAILY 10/18/14 01/19/18 01/19/18 History Hydralazine HCl [Apresoline TAB] 25 mg PO TID 10/18/14 01/19/18 01/19/18 History Potassium Chloride [Klor-Con M10] 10 meq PO DAILY 10/18/14 01/19/18 10/17/14 History amLODIPine/VALSARTAN [Exforge 1 each PO QAM 10/18/14 01/19/18 10/17/14 History 10-320 mg Tablet] Docusate Sodium [Stool Softener] 250 mg PO PRN 01/19/18 01/19/18 Unknown History Furosemide [Lasix TAB] 40 mg PO BID 01/19/18 01/19/18 Unknown History Isosorbide Dinitrate 30 mg PO QAM 01/19/18 01/19/18 01/19/18 History Tamsulosin [Flomax] 0.4 mg PO QAM 01/19/18 01/19/18 01/19/18 History Vit D3/Folic Acid/B2/B6/B12 1.25 mg PO QWEEK 01/19/18 01/19/18 Unknown History [Folgard Tablet] Warfarin [Coumadin] 7.5 mg PO QPM 01/19/18 01/19/18 Unknown History Active Meds: Active Medications Acetaminophen (Tylenol) 650 mg PO Q4H PRN PRN Reason: Pain MILD(1-3)/Fever >100.5/PIERCE Albuterol (Proventil) 2.5 mg IH Q4HRT PRN PRN Reason: Shortness Of Breath Last Admin: 01/21/18 11:39 Dose: 2.5 mg Aspirin (Halfprin Ec) 81 mg PO DAILY [facility] Last Admin: 01/22/18 09:55 Dose: 81 mg Atorvastatin Calcium (Lipitor) 40 mg PO DAILY [facility] Last Admin: 01/22/18 09:50 Dose: 40 mg Carvedilol (Coreg) 25 mg PO BID [facility] Last Admin: 01/22/18 09:53 Dose: Not Given Docusate Sodium (Colace) 100 mg PO PRN PRN PRN Reason: stool softener Furosemide (Lasix) 40 mg IV BID [facility] Last Admin: 01/22/18 09:57 Dose: 40 mg Hydralazine HCl (Apresoline) 25 mg PO TID [facility] Last Admin: 01/22/18 09:51 Dose: 25 mg Insulin Glargine (Lantus) 40 units SUB-Q QHS [facility] Last Admin: 01/21/18 22:36 Dose: Not Given Isosorbide Mononitrate (Imdur) 30 mg PO QDAY [facility] Last Admin: 01/22/18 09:50 Dose: 30 mg Methylprednisolone Sodium Succinate (Solu-Medrol) 60 mg IV Q8HR [facility] Last Admin: 01/22/18 06:25 Dose: 60 mg Metolazone (Zaroxolyn) 2.5 mg PO QDAY [facility] Last Admin: 01/22/18 09:51 Dose: 2.5 mg Ondansetron HCl (Zofran) 4 mg IV Q8H PRN PRN Reason: Nausea And Vomiting Potassium Chloride (K-Dur) 10 meq PO DAILY [facility] Last Admin: 01/22/18 09:50 Dose: 10 meq Sodium Chloride (Sodium Chloride Flush Syringe 10 Ml) 10 ml IV BID [facility] Last Admin: 01/22/18 09:58 Dose: 10 ml Sodium Chloride (Sodium Chloride Flush Syringe 10 Ml) 10 ml IV PRN PRN PRN Reason: LINE FLUSH Valsartan (Diovan) 320 mg PO DAILY [facility] Last Admin: 01/22/18 09:50 Dose: 320 mg Warfarin Sodium (Coumadin Pharmacy To Dose) 1 each PO PKCONSULT [facility]; Protocol Warfarin Sodium (Coumadin) 5 mg PO DAILY@1700 [facility]; Protocol Last Admin: 01/21/18 18:37 Dose: 5 mg Physical Examination Vital signs: Vital Signs Temp Pulse Resp BP Pulse Ox 98.4 F 71 16 151/71 97 01/19/18 13:12 01/19/18 13:12 01/19/18 13:12 01/19/18 13:12 01/19/18 13:12 General appearance: no acute distress, alert Eyes: non-icteric ENT: oropharynx moist, other (Mallampati 4) Neck: no JVD Ascultation: Bilateral: wheezes (mild), rales (both bases) Percussion: Bilateral: not dull Cardiovascular: irregular rhythm, murmur noted Integumentary: normal Extremities: no cyanosis, edema normal mental status (poor recall), non-focal exam, CN II-XII normal Results - Laboratory Findings CBC and BMP: 01/19/18 13:53 01/22/18 08:03 PT/INR, D-dimer PT 28.2 Sec. (12.2-14.9) H 01/22/18 08:03 INR 2.45 (0.87-1.13) H 01/22/18 08:03 Abnormal lab findings: Abnormal Labs 01/19/18 01/19/18 01/19/18 13:53 13:53 15:30 Hgb 10.1 L Hct 32.3 L MCV 72 L MCH 23 L MCHC 31 L RDW 20.5 H Lymph % (Auto) 13.3 L [place] % (Auto) 11.3 H Lymph # 0.7 L Seg Neutrophils % 74.8 H PT 29.5 H INR 2.59 H APTT 43.7 H Sodium Potassium Chloride BUN 47 H Creatinine Glucose 58 L POC Glucose Calcium Total Creatine Kinase CK-MB (CK-2) Troponin T 0.127 H* NT-Pro-B Natriuret Pep 34792 H LDL Cholesterol Direct 34 L Urine WBC (Auto) Urine Creatinine Urine Total Protein 01/19/18 01/19/18 01/19/18 15:46 16:49 17:52 Hgb Hct MCV MCH MCHC RDW Lymph % (Auto) [place] % (Auto) Lymph # Seg Neutrophils % PT INR APTT Sodium Potassium Chloride BUN Creatinine Glucose 43 L POC Glucose 43 L 137 H Calcium Total Creatine Kinase CK-MB (CK-2) Troponin T NT-Pro-B Natriuret Pep LDL Cholesterol Direct Urine WBC (Auto) Urine Creatinine Urine Total Protein 01/19/18 01/19/18 01/20/18 18:31 20:27 06:24 Hgb Hct MCV MCH MCHC RDW Lymph % (Auto) [place] % (Auto) Lymph # Seg Neutrophils % PT INR APTT Sodium Potassium Chloride BUN 45 H Creatinine 1.6 H Glucose POC Glucose 121 H Calcium 8.2 L Total Creatine Kinase 709 H CK-MB (CK-2) 14.0 H Troponin T 0.124 H* NT-Pro-B Natriuret Pep LDL Cholesterol Direct Urine WBC (Auto) Urine Creatinine Urine Total Protein 01/20/18 01/20/18 01/20/18 07:50 16:48 17:57 Hgb Hct MCV MCH MCHC RDW Lymph % (Auto) [place] % (Auto) Lymph # Seg Neutrophils % PT 30.6 H INR 2.71 H APTT Sodium Potassium Chloride BUN Creatinine Glucose POC Glucose 141 H Calcium Total Creatine Kinase 457 H CK-MB (CK-2) Troponin T NT-Pro-B Natriuret Pep LDL Cholesterol Direct Urine WBC (Auto) Urine Creatinine Urine Total Protein 01/20/18 01/21/18 01/21/18 21:55 06:47 06:47 Hgb Hct MCV MCH MCHC RDW Lymph % (Auto) [place] % (Auto) Lymph # Seg Neutrophils % PT 30.8 H INR 2.73 H APTT Sodium 147 H Potassium 3.5 L Chloride BUN 48 H Creatinine 1.7 H Glucose 40 L POC Glucose 181 H Calcium 8.0 L Total Creatine Kinase CK-MB (CK-2) Troponin T NT-Pro-B Natriuret Pep LDL Cholesterol Direct Urine WBC (Auto) Urine Creatinine Urine Total Protein 01/21/18 01/22/18 01/22/18 21:39 05:00 05:00 Hgb Hct MCV MCH MCHC RDW Lymph % (Auto) [place] % (Auto) Lymph # Seg Neutrophils % PT INR APTT Sodium Potassium Chloride BUN Creatinine Glucose POC Glucose 150 H Calcium Total Creatine Kinase CK-MB (CK-2) Troponin T NT-Pro-B Natriuret Pep LDL Cholesterol Direct Urine WBC (Auto) 11.0 H Urine Creatinine 47.7 H Urine Total Protein 16 H 01/22/18 01/22/18 01/22/18 06:07 08:03 08:03 Hgb Hct MCV MCH MCHC RDW Lymph % (Auto) [place] % (Auto) Lymph # Seg Neutrophils % PT 28.2 H INR 2.45 H APTT Sodium Potassium 3.5 L Chloride 96.8 L BUN 54 H Creatinine 1.7 H Glucose 175 H POC Glucose 176 H Calcium 8.3 L Total Creatine Kinase 440 H CK-MB (CK-2) 8.1 H Troponin T 0.081 H D NT-Pro-B Natriuret Pep LDL Cholesterol Direct Urine WBC (Auto) Urine Creatinine Urine Total Protein - Diagnostic Findings Chest x-ray: report reviewed, image reviewed Assessment and Plan Congestive heart failure with exacerbation. Echocardiogram with worsening EF of 20% compared to previous studies. Cardiology following A. fib. On anticoagulation COPD with exacerbation. Actively wheezing, prior history of tobacco abuse DG. Not evaluated, not on treatment Obesity Dementia? Recommendations Albuterol 2.5 milligram nebulizations every 4-6 hours with or without ipratropium Solu-Medrol 40-60 mg IV every 6-8 hours Oxygen support via nasal cannula or mask to maintain oximetry over 92% DVT prophylaxis Gentle diuresis monitor renal function, intake and output When the PSG evaluation as an outpatient, likely CPAP therapy
--- NOTE | 2018-01-22 11:17 | Progress Note ---
Assessment and Plan Assessment and plan: 82 YO Female with Systolic CHF, HTN, HLD, Obesity, Chronic Respiratory Failure on Home Oxygen, Atrial Fib on therapeutic anticoagulation, presents to ED for evaluation. Pt states that he has experienced shortness of breath, as well as leg swelling and scrotal swelling over the past 10 days with worsening symptoms over the past 5 days. Pt was seen and evaluated in his cardiologists office and was found to have CHF decompensation, and was sent to [facility] for further care and evaluation. Pt seen and evaluated in ED and found to have CHF decompensation, as well as Acute Respiratory failure. Pt Denies fever, chills, CP, Palpitations , NVE, Trauma, falls, syncope, productive cough, or recent ill contacts. Cardiology consulted in ED. Pt admitted to telemetry. Pt daughter at bedside. Discussed patient prognosis, and care plan with patient and daughter. Pt daughter also informed of Code status, and End of Life care. Pt desires to be a Full Code. (1) Acute and chronic systolic CHF exacerbation/nonischemic cardiomyopathy/ppm * Cardiology input noted, Strict I/O, daily weight, monitor uop q shift to ensure negative fluid balance, afterload reduction, diuresis, supplemental oxygen * EF 20% (2) Acute on chronic respiratory failure * Supplemental oxygen, nebulizer therapy, NIPPV as clinically indicated, diuresis, Chest X ray-shows volume overload clinical improvement noted with Lasix. 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 Stable (5)HTN (hypertension) * monitor bp q shift, resume prehospital antihypertensive therapy (6) GERD (gastroesophageal reflux disease) * PPI therapy (7) Chronic Atrial fibrillation * Therapeutic anticoagulation, cardiology consulted, (8) Dementia * Stable continue current medications (9)DVT prophylaxis scd to ble while in bed. History Interval history: Patient is examined today, with mild acute distress secondary to some shortness of breath and still Persistent with audible wheezing noted today. Hospitalist Physical - Physical exam Narrative exam: VITAL SIGNS: Reviewed. GENERAL: The patient appeared chronically ill otherwise above. Distress. Vital signs as documented. HEAD: No signs of head trauma. EYES: Pupils are equal. Extraocular motions intact. EARS: Hearing grossly intact. MOUTH: Oropharynx is normal. NECK: No adenopathy, no JVD. CHEST: Chest with diminished breath sounds bilaterally. wheezing and no rales , or rhonchi. CARDIAC: Regular rate and rhythm. S1 and S2, without murmurs, gallops, or rubs. VASCULAR: Peripheral pulses. 1+Edema. Peripheral pulses normal and equal in all extremities. ABDOMEN: Soft, without detectable tenderness. No sign of distention. No rebound or guarding, and no masses palpated. Bowel Sounds normal. MUSCULOSKELETAL: Good range of motion of all major joints. Extremities without clubbing, cyanosis. 1+ edema. NEUROLOGIC EXAM: Awake and oriented to person place. No focal sensory or strength deficits. Speech normal. Follows commands. PSYCHIATRIC: Mood anxious SKIN: No rash or lesions. - Constitutional Vitals: Temp Pulse Resp BP Pulse Ox 97.9 F 56 L 18 131/61 100 01/22/18 08:50 01/22/18 08:51 01/22/18 08:50 01/22/18 08:50 01/22/18 08:50 General appearance: Present: mild distress, obese Results - Labs CBC & Chem 7: 01/19/18 13:53 01/23/18 08:21 Labs: Laboratory Last Values WBC 4.9 K/mm3 (4.5-11.0) 01/19/18 13:53 RBC 4.50 M/mm3 (3.65-5.03) 01/19/18 13:53 Hgb 10.1 gm/dl (11.8-15.2) L 01/19/18 13:53 Hct 32.3 % (35.5-45.6) L 01/19/18 13:53 MCV 72 fl (84-94) L 01/19/18 13:53 MCH 23 pg (28-32) L 01/19/18 13:53 MCHC 31 % (32-34) L 01/19/18 13:53 RDW 20.5 % (13.2-15.2) H 01/19/18 13:53 Plt Count 149 K/mm3 (140-440) 01/19/18 13:53 Lymph % (Auto) 13.3 % (13.4-35.0) L 01/19/18 13:53 [place] % (Auto) 11.3 % (0.0-7.3) H 01/19/18 13:53 Eos % (Auto) 0.1 % (0.0-4.3) 01/19/18 13:53 Baso % (Auto) 0.5 % (0.0-1.8) 01/19/18 13:53 Lymph # 0.7 K/mm3 (1.2-5.4) L 01/19/18 13:53 [place] # 0.6 K/mm3 (0.0-0.8) 01/19/18 13:53 Eos # 0.0 K/mm3 (0.0-0.4) 01/19/18 13:53 Baso # 0.0 K/mm3 (0.0-0.1) 01/19/18 13:53 Seg Neutrophils % 74.8 % (40.0-70.0) H 01/19/18 13:53 Seg Neutrophils # 3.7 K/mm3 (1.8-7.7) 01/19/18 13:53 PT 28.2 Sec. (12.2-14.9) H 01/22/18 08:03 INR 2.45 (0.87-1.13) H 01/22/18 08:03 APTT 43.7 Sec. (24.2-36.6) H 01/19/18 15:30 Sodium 142 mmol/L (137-145) 01/22/18 08:03 Potassium 3.5 mmol/L (3.6-5.0) L 01/22/18 08:03 Chloride 96.8 mmol/L (98-107) L 01/22/18 08:03 Carbon Dioxide 27 mmol/L (22-30) 01/22/18 08:03 Anion Gap 22 mmol/L 01/22/18 08:03 BUN 54 mg/dL (9-20) H 01/22/18 08:03 Creatinine 1.7 mg/dL (0.8-1.5) H 01/22/18 08:03 Estimated GFR 47 ml/min 01/22/18 08:03 BUN/Creatinine Ratio 32 % 01/22/18 08:03 Glucose 175 mg/dL (75-100) H 01/22/18 08:03 POC Glucose 176 (70-105) H 01/22/18 06:07 Calcium 8.3 mg/dL (8.4-10.2) L 01/22/18 08:03 Total Creatine Kinase 440 units/L (55-170) H 01/22/18 08:03 CK-MB (CK-2) 8.1 ng/mL (0.0-4.0) H 01/22/18 08:03 CK-MB (CK-2) Rel Index 1.8 (0-4) 01/22/18 08:03 Troponin T 0.081 ng/mL (0.00-0.029) H D 01/22/18 08:03 NT-Pro-B Natriuret Pep 86498 pg/mL (0-900) H 01/19/18 13:53 Triglycerides 51 mg/dL (2-149) 01/19/18 13:53 Cholesterol 89 mg/dL (50-199) 01/19/18 13:53 LDL Cholesterol Direct 34 mg/dL (50-130) L 01/19/18 13:53 HDL Cholesterol 52 mg/dL (40-59) 01/19/18 13:53 Cholesterol/HDL Ratio 1.71 % 01/19/18 13:53 Urine Color Yellow (Yellow) 01/22/18 05:00 Urine Turbidity Cloudy (Clear) 01/22/18 05:00 Urine pH 5.0 (5.0-7.0) 01/22/18 05:00 Ur Specific [place] 1.009 (1.003-1.030) 01/22/18 05:00 Urine Protein <15 mg/dl mg/dL (Negative) 01/22/18 05:00 Urine Glucose (UA) Neg mg/dL (Negative) 01/22/18 05:00 Urine Ketones Neg mg/dL (Negative) 01/22/18 05:00 Urine Blood Lg (Negative) 01/22/18 05:00 Urine Nitrite Neg (Negative) 01/22/18 05:00 Urine Bilirubin Neg (Negative) 01/22/18 05:00 Urine Urobilinogen < 2.0 mg/dL (<2.0) 01/22/18 05:00 Ur Leukocyte Esterase Mod (Negative) 01/22/18 05:00 Urine WBC (Auto) 11.0 /HPF (0.0-6.0) H 01/22/18 05:00 Urine RBC (Auto) > 182.0 /HPF (0.0-6.0) 01/22/18 05:00 U Epithel Cells (Auto) < 1.0 /HPF (0-13.0) 01/22/18 05:00 Urine Bacteria (Auto) 1+ /HPF (Negative) 01/22/18 05:00 Hyaline Casts 60 /LPF 01/22/18 05:00 Urine Mucus Few /HPF 01/22/18 05:00 Urine Creatinine 47.7 mg/dL (0.1-20.0) H 01/22/18 05:00 Urine Total Protein 16 mg/dL (5-11.8) H 01/22/18 05:00
--- NOTE | 2018-01-22 11:54 | Progress Note ---
Assessment and Plan Acute on chronic systolic heart failure Nonischemic cardiomyopathy NSTEMI type II Chronic atrial fibrillation with CVR - anticoagulated with coumadin PPM in situ HTN HLP Chronic respiratory failure, on home O2 Dementia rec: change to po lasix, and cont other meds Subjective Date of service: 01/22/18 Principal diagnosis: HF Interval history: pt able to ly flat Objective Vital Signs Temp Pulse Pulse Resp BP BP Pulse Ox 01/22/18 10:00 56 L 18 100 01/22/18 08:51 56 L 01/22/18 08:50 97.9 F 57 L 18 131/61 100 01/22/18 05:00 98.3 F 51 L 18 168/65 98 01/22/18 01:00 50 L 01/21/18 23:46 98.2 F 56 L 18 109/61 96 01/21/18 22:04 96 01/21/18 21:37 58 L 01/21/18 19:55 98.4 F 48 L 18 128/62 100 01/21/18 17:33 50 L 01/21/18 15:55 97.7 F 49 L 20 119/47 100 - Physical Examination General: No Apparent Distress HEENT: Positive: PERRL, Normocephaly, Mucus Membranes Moist Neck: Positive: neck supple, trachea midline Cardiac: Positive: Reg Rate and Rhythm Lungs: Positive: Other (upper respiratory wheeze) Neuro: Positive: Grossly Intact Abdomen: Positive: Soft. Negative: Tender Skin: Negative: Wound Extremities: Absent: edema - Labs and Meds Cardiac Enzymes 01/22/18 Range/Units 08:03 CK-MB (CK-2) 8.1 H (0.0-4.0) ng/mL Coagulation 01/22/18 Range/Units 08:03 PT 28.2 H (12.2-14.9) Sec. INR 2.45 H (0.87-1.13) Comprehensive Metabolic Panel 01/22/18 Range/Units 08:03 Sodium 142 (137-145) mmol/L Potassium 3.5 L (3.6-5.0) mmol/L Chloride 96.8 L (98-107) mmol/L Carbon Dioxide 27 (22-30) mmol/L BUN 54 H (9-20) mg/dL Creatinine 1.7 H (0.8-1.5) mg/dL Glucose 175 H (75-100) mg/dL Calcium 8.3 L (8.4-10.2) mg/dL - Imaging and Cardiology EKG: report reviewed, image reviewed Echo: pending, report reviewed ( 06/2016 showed EF 40-45%, RV mildly enlarged, mild AR, mod MR, mod TR. ) Cardiac cath: report reviewed (LHC done 03/2010 showed mild LI, EF 30-35%. ) - Telemetry EKG Rhythm: Sinus Rhythm
--- NOTE | 2018-01-22 15:16 | Progress Note ---
Assessment and Plan - Patient Problems (1) Other acute kidney failure Current Visit: Yes Status: Acute Plan to address problem: Suspect acute kidney injury Pre-renal azotemia secondary to acute Cardiorenal syndrome/diuresis. FOLLOW-UP ELECTROLYTES AND RENAL FUNCTION WITH GENTLE DIURESIS. (2) Hypernatremia Current Visit: Yes Status: Acute Plan to address problem: Sodium has improved. Follow up Sodium (3) Hypokalemia Current Visit: Yes Status: Acute Plan to address problem: Supplement potassium and follow-up level. Add low-dose spironolactone (4) Acute on chronic systolic heart failure Current Visit: Yes Status: Acute Plan to address problem: Continue IV diuretics. We'll add thiazide diuretic (5) Anemia Current Visit: Yes Status: Acute Plan to address problem: Follow-up hemoglobin (6) Type 2 diabetes mellitus Current Visit: Yes Status: Acute Plan to address problem: Blood sugar management by primary attending (7) Atrial fibrillation Current Visit: Yes Status: Chronic Plan to address problem: Rate control/anticoagulation per cardiology (8) HTN (hypertension) Current Visit: Yes Status: Chronic Plan to address problem: Follow blood pressure on current medications Subjective Date of service: 01/22/18 Principal diagnosis: HF Interval history: Patient seen lying in bed. No new complaints. Feels a bit better. No shortness of breath at rest Objective - Exam Narrative Exam: Elderly -[place] Citizen lying in Bed in no acute distress HEENT: NCAT, pink oral mucous membrane Neck: Supple, no venous distention CVS: S1S2 RRR with no murmur, rub or gallop Chest: Diminished breath sounds Abdomen: Protuberant, soft, mild edema, nontender, no organomegaly, bowel sounds are present Extremities: 2+ edema extending up to the thighs Skin warm and dry with no rash. Pigmentary changes in legs Neuro: Awake, alert no focal deficits and memory impairment - Vital Signs Vital signs: Vital Signs - 12hr 01/22/18 01/22/18 01/22/18 05:00 08:50 08:51 Temperature 98.3 F 97.9 F Pulse Rate 51 L 57 L 56 L Pulse Rate [ From Monitor] Respiratory 18 18 Rate Blood Pressure 168/65 Blood Pressure 131/61 [Right] O2 Sat by Pulse 98 100 Oximetry 01/22/18 01/22/18 10:00 12:02 Temperature 97.8 F Pulse Rate 52 L Pulse Rate [ 56 L From Monitor] Respiratory 18 22 Rate Blood Pressure 152/66 Blood Pressure [Right] O2 Sat by Pulse 100 100 Oximetry - Lab 01/19/18 13:53 01/22/18 08:03 Most recent lab results Calcium 8.3 mg/dL (8.4-10.2) L 01/22/18 08:03 Urine Creatinine 47.7 mg/dL (0.1-20.0) H 01/22/18 05:00 Urine Total Protein 16 mg/dL (5-11.8) H 01/22/18 05:00
[2018-01-22] MEDS: COUMADIN PO SCH (18:27)
[2018-01-22] MEDS: LASIX PO SCH (18:27)
[2018-01-22] MEDS: LANTUS SUB-Q SCH (22:29)
[2018-01-22] MEDS: ALDACTONE PO SCH (22:30)
[2018-01-23] MEDS: LASIX PO SCH ×2 (05:29→18:31)
[2018-01-23] MEDS: APRESOLINE PO SCH ×3 (09:01→21:09)
[2018-01-23 09:21] LABS: Calcium 8.1 mg/dL (8.4-10.2)
--- NOTE | 2018-01-23 09:37 | Progress Note ---
Assessment and Plan Congestive heart failure with exacerbation. Echocardiogram with worsening EF of 20% compared to previous studies. Cardiology following A. fib. On anticoagulation COPD with exacerbation. Actively wheezing, prior history of tobacco abuse DG. Not evaluated, not on treatment Obesity Dementia? NEDRA Recommendations Continue Nebs Solu-Medrol 40-60 mg IV every 6-8 hours Monitor I/O,renal staus,nephrology f/u Oxygen support via nasal cannula or mask to maintain oximetry over 92% DVT prophylaxis When the PSG evaluation as an outpatient, likely CPAP therapy Subjective Date of service: 01/23/18 Principal diagnosis: HF Objective Vital Signs - 12hr 01/22/18 01/22/18 01/23/18 22:25 23:26 01:00 Temperature 98.7 F Pulse Rate 48 L 54 L 52 L Respiratory 20 Rate Blood Pressure 123/52 O2 Sat by Pulse 95 Oximetry 01/23/18 01/23/18 03:59 08:14 Temperature 97.9 F 98.3 F Pulse Rate 49 L 48 L Respiratory 20 20 Rate Blood Pressure 144/64 149/78 O2 Sat by Pulse 98 95 Oximetry Constitutional: no acute distress, alert Eyes: non-icteric ENT: oropharynx moist, other (Mallampati 4) Neck: no JVD Ascultation: Bilateral: diminished breath sounds, rales (both bases) Percussion: Bilateral: not dull Cardiovascular: irregular rhythm, murmur noted Integumentary: normal Extremities: no cyanosis, edema Neurologic: normal mental status (poor recall), non-focal exam, CN II-XII normal CBC and BMP: 01/19/18 13:53 01/23/18 08:21 ABG, PT/INR, D-dimer: PT/INR, D-dimer PT 28.2 Sec. (12.2-14.9) H 01/22/18 08:03 INR 2.45 (0.87-1.13) H 01/22/18 08:03 Abnormal lab findings: Abnormal Labs 01/19/18 01/19/18 01/19/18 13:53 13:53 15:30 Hgb 10.1 L Hct 32.3 L MCV 72 L MCH 23 L MCHC 31 L RDW 20.5 H Lymph % (Auto) 13.3 L [place] % (Auto) 11.3 H Lymph # 0.7 L Seg Neutrophils % 74.8 H PT 29.5 H INR 2.59 H APTT 43.7 H Sodium Potassium Chloride BUN 47 H Creatinine Glucose 58 L POC Glucose Calcium Total Creatine Kinase CK-MB (CK-2) Troponin T 0.127 H* NT-Pro-B Natriuret Pep 80203 H LDL Cholesterol Direct 34 L Urine WBC (Auto) Urine Creatinine Urine Total Protein 01/19/18 01/19/18 01/19/18 15:46 16:49 17:52 Hgb Hct MCV MCH MCHC RDW Lymph % (Auto) [place] % (Auto) Lymph # Seg Neutrophils % PT INR APTT Sodium Potassium Chloride BUN Creatinine Glucose 43 L POC Glucose 43 L 137 H Calcium Total Creatine Kinase CK-MB (CK-2) Troponin T NT-Pro-B Natriuret Pep LDL Cholesterol Direct Urine WBC (Auto) Urine Creatinine Urine Total Protein 01/19/18 01/19/18 01/20/18 18:31 20:27 06:24 Hgb Hct MCV MCH MCHC RDW Lymph % (Auto) [place] % (Auto) Lymph # Seg Neutrophils % PT INR APTT Sodium Potassium Chloride BUN 45 H Creatinine 1.6 H Glucose POC Glucose 121 H Calcium 8.2 L Total Creatine Kinase 709 H CK-MB (CK-2) 14.0 H Troponin T 0.124 H* NT-Pro-B Natriuret Pep LDL Cholesterol Direct Urine WBC (Auto) Urine Creatinine Urine Total Protein 01/20/18 01/20/18 01/20/18 07:50 16:48 17:57 Hgb Hct MCV MCH MCHC RDW Lymph % (Auto) [place] % (Auto) Lymph # Seg Neutrophils % PT 30.6 H INR 2.71 H APTT Sodium Potassium Chloride BUN Creatinine Glucose POC Glucose 141 H Calcium Total Creatine Kinase 457 H CK-MB (CK-2) Troponin T NT-Pro-B Natriuret Pep LDL Cholesterol Direct Urine WBC (Auto) Urine Creatinine Urine Total Protein 01/20/18 01/21/18 01/21/18 21:55 06:47 06:47 Hgb Hct MCV MCH MCHC RDW Lymph % (Auto) [place] % (Auto) Lymph # Seg Neutrophils % PT 30.8 H INR 2.73 H APTT Sodium 147 H Potassium 3.5 L Chloride BUN 48 H Creatinine 1.7 H Glucose 40 L POC Glucose 181 H Calcium 8.0 L Total Creatine Kinase CK-MB (CK-2) Troponin T NT-Pro-B Natriuret Pep LDL Cholesterol Direct Urine WBC (Auto) Urine Creatinine Urine Total Protein 01/21/18 01/22/18 01/22/18 21:39 05:00 05:00 Hgb Hct MCV MCH MCHC RDW Lymph % (Auto) [place] % (Auto) Lymph # Seg Neutrophils % PT INR APTT Sodium Potassium Chloride BUN Creatinine Glucose POC Glucose 150 H Calcium Total Creatine Kinase CK-MB (CK-2) Troponin T NT-Pro-B Natriuret Pep LDL Cholesterol Direct Urine WBC (Auto) 11.0 H Urine Creatinine 47.7 H Urine Total Protein 16 H 01/22/18 01/22/18 01/22/18 06:07 08:03 08:03 Hgb Hct MCV MCH MCHC RDW Lymph % (Auto) [place] % (Auto) Lymph # Seg Neutrophils % PT 28.2 H INR 2.45 H APTT Sodium Potassium 3.5 L Chloride 96.8 L BUN 54 H Creatinine 1.7 H Glucose 175 H POC Glucose 176 H Calcium 8.3 L Total Creatine Kinase 440 H CK-MB (CK-2) 8.1 H Troponin T 0.081 H D NT-Pro-B Natriuret Pep LDL Cholesterol Direct Urine WBC (Auto) Urine Creatinine Urine Total Protein 01/22/18 01/22/18 01/22/18 12:07 17:00 22:12 Hgb Hct MCV MCH MCHC RDW Lymph % (Auto) [place] % (Auto) Lymph # Seg Neutrophils % PT INR APTT Sodium Potassium Chloride BUN Creatinine Glucose POC Glucose 200 H 257 H 228 H Calcium Total Creatine Kinase CK-MB (CK-2) Troponin T NT-Pro-B Natriuret Pep LDL Cholesterol Direct Urine WBC (Auto) Urine Creatinine Urine Total Protein 01/23/18 01/23/18 01/23/18 05:55 06:50 08:21 Hgb Hct MCV MCH MCHC RDW Lymph % (Auto) [place] % (Auto) Lymph # Seg Neutrophils % PT INR APTT Sodium Potassium 3.3 L Chloride BUN 61 H Creatinine 1.8 H Glucose 180 H POC Glucose 198 H 202 H Calcium 8.1 L Total Creatine Kinase CK-MB (CK-2) Troponin T NT-Pro-B Natriuret Pep LDL Cholesterol Direct Urine WBC (Auto) Urine Creatinine Urine Total Protein
[2018-01-23 09:47] LABS: INR 3.03 (0.87-1.13)
[2018-01-23] MEDS: HALFPRIN EC PO SCH (09:52)
[2018-01-23] MEDS: ZAROXOLYN PO SCH (09:55)
[2018-01-23] MEDS: COREG PO SCH ×2 (09:55→21:09)
[2018-01-23] MEDS: K-DUR PO SCH (09:57)
[2018-01-23] MEDS: DIOVAN PO SCH (09:57)
[2018-01-23] MEDS: IMDUR PO SCH (09:58)
[2018-01-23] MEDS: ALDACTONE PO SCH ×2 (09:59→21:09)
[2018-01-23] MEDS ORDERED: APRESOLINE PO SCH (10:00)
--- NOTE | 2018-01-23 10:05 | Progress Note ---
Assessment and Plan Acute on chronic systolic heart failure Nonischemic cardiomyopathy NSTEMI type II Chronic atrial fibrillation with CVR - anticoagulated with coumadin PPM in situ HTN HLP Chronic respiratory failure, on home O2 Dementia rec: In view of worsening renal insufficiency DC Zaroxolyn patient is having periods of bradycardia so we'll decrease Coreg to 12.5 twice a day for better BP control increase hydralazine 5omg 3 times a day, consider placement Subjective Date of service: 01/23/18 Principal diagnosis: HF Interval history: pt lying in bed, no distress Objective Vital Signs Temp Pulse Resp BP Pulse Ox 01/23/18 09:59 61 149/78 01/23/18 09:58 61 149/78 01/23/18 09:57 61 149/78 01/23/18 09:55 61 149/78 01/23/18 09:01 61 149/78 01/23/18 08:14 98.3 F 48 L 20 149/78 95 01/23/18 03:59 97.9 F 49 L 20 144/64 98 01/23/18 01:00 52 L 01/22/18 23:26 98.7 F 54 L 20 123/52 95 01/22/18 22:25 48 L 01/22/18 20:25 99 01/22/18 19:44 98.3 F 51 L 20 144/85 97 01/22/18 16:51 98.1 F 47 L 18 124/53 96 01/22/18 12:02 97.8 F 52 L 22 152/66 100 - Physical Examination General: No Apparent Distress HEENT: Positive: PERRL, Normocephaly, Mucus Membranes Moist Neck: Positive: neck supple, trachea midline Cardiac: Positive: Reg Rate and Rhythm Lungs: Positive: clear to auscultation Neuro: Positive: Grossly Intact Abdomen: Positive: Soft. Negative: Tender Skin: Negative: Wound Extremities: Absent: edema - Labs and Meds Coagulation 01/23/18 Range/Units 08:21 PT 33.5 H (12.2-14.9) Sec. INR 3.03 H (0.87-1.13) Comprehensive Metabolic Panel 01/23/18 Range/Units 08:21 Sodium 144 (137-145) mmol/L Potassium 3.3 L (3.6-5.0) mmol/L Chloride 102.2 (98-107) mmol/L Carbon Dioxide 27 (22-30) mmol/L BUN 61 H (9-20) mg/dL Creatinine 1.8 H (0.8-1.5) mg/dL Glucose 180 H (75-100) mg/dL Calcium 8.1 L (8.4-10.2) mg/dL - Imaging and Cardiology EKG: report reviewed, image reviewed Echo: pending, report reviewed ( 06/2016 showed EF 40-45%, RV mildly enlarged, mild AR, mod MR, mod TR. ) Cardiac cath: report reviewed (LHC done 03/2010 showed mild LI, EF 30-35%. ) - Telemetry EKG Rhythm: Sinus Rhythm (60's with apc)
--- NOTE | 2018-01-23 12:20 | Progress Note ---
Assessment and Plan Assessment and plan: 82 YO Female with Systolic CHF, HTN, HLD, Obesity, Chronic Respiratory Failure on Home Oxygen, Atrial Fib on therapeutic anticoagulation, presents to ED for evaluation. Pt states that he has experienced shortness of breath, as well as leg swelling and scrotal swelling over the past 10 days with worsening symptoms over the past 5 days. Pt was seen and evaluated in his cardiologists office and was found to have CHF decompensation, and was sent to [facility] for further care and evaluation. Pt seen and evaluated in ED and found to have CHF decompensation, as well as Acute Respiratory failure. Pt Denies fever, chills, CP, Palpitations , NVE, Trauma, falls, syncope, productive cough, or recent ill contacts. Cardiology consulted in ED. Pt admitted to telemetry. Pt daughter at bedside. Discussed patient prognosis, and care plan with patient and daughter. Pt daughter also informed of Code status, and End of Life care. Pt desires to be a Full Code. (1) Acute and chronic systolic CHF exacerbation/nonischemic cardiomyopathy/ppm * Cardiology input noted, Strict I/O, daily weight, monitor uop q shift to ensure negative fluid balance, afterload reduction, diuresis, supplemental oxygen * EF 20% * Zaroxolyn Stopped secondary to worsening renal function * Coreg decreased to 12.5 twice a day for better BP control increase hydralazine 5omg 3 times a day, due to bradiacardia (2) Acute on chronic respiratory failure * Supplemental oxygen, nebulizer therapy, NIPPV as clinically indicated, diuresis, Chest X ray-shows volume overload clinical improvement noted with Lasix. 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 Stable (5)HTN (hypertension) * monitor bp q shift, resume pre-hospital antihypertensive therapy (6) GERD (gastroesophageal reflux disease) * PPI therapy (7) Chronic Atrial fibrillation * Therapeutic anticoagulation, cardiology consulted, (8) Chronic Debility * PT/OT- possible placement if level care too high for family (9)Dementia * Stable continue current medications (10)secondary coagulopathy INR 3.03. HOLD TODAYS COUMADIN (11)DVT prophylaxis scd to ble while in bed. History Interval history: Patient is examined today, with mild acute distress secondary to some shortness of breath and still Persistent with audible wheezing noted today. Hospitalist Physical - Physical exam Narrative exam: VITAL SIGNS: Reviewed. GENERAL: The patient appeared chronically ill otherwise above. Distress. Vital signs as documented. HEAD: No signs of head trauma. EYES: Pupils are equal. Extraocular motions intact. EARS: Hearing grossly intact. MOUTH: Oropharynx is normal. NECK: No adenopathy, no JVD. CHEST: Chest with diminished breath sounds bilaterally. wheezing and no rales , or rhonchi. CARDIAC: Regular rate and rhythm. S1 and S2, without murmurs, gallops, or rubs. VASCULAR: Peripheral pulses. 1+Edema. Peripheral pulses normal and equal in all extremities. ABDOMEN: Soft, without detectable tenderness. No sign of distention. No rebound or guarding, and no masses palpated. Bowel Sounds normal. MUSCULOSKELETAL: Good range of motion of all major joints. Extremities without clubbing, cyanosis. 1+ edema. NEUROLOGIC EXAM: Awake and oriented to person place. No focal sensory or strength deficits. Speech normal. Follows commands. PSYCHIATRIC: Mood anxious SKIN: No rash or lesions. - Constitutional Vitals: Temp Pulse Resp BP Pulse Ox 98.3 F 61 20 149/78 95 01/23/18 08:14 01/23/18 09:59 01/23/18 08:14 01/23/18 09:59 01/23/18 08:14 General appearance: Present: mild distress, obese Results - Labs CBC & Chem 7: 01/19/18 13:53 01/24/18 07:23 Labs: Laboratory Last Values WBC 4.9 K/mm3 (4.5-11.0) 01/19/18 13:53 RBC 4.50 M/mm3 (3.65-5.03) 01/19/18 13:53 Hgb 10.1 gm/dl (11.8-15.2) L 01/19/18 13:53 Hct 32.3 % (35.5-45.6) L 01/19/18 13:53 MCV 72 fl (84-94) L 01/19/18 13:53 MCH 23 pg (28-32) L 01/19/18 13:53 MCHC 31 % (32-34) L 01/19/18 13:53 RDW 20.5 % (13.2-15.2) H 01/19/18 13:53 Plt Count 149 K/mm3 (140-440) 01/19/18 13:53 Lymph % (Auto) 13.3 % (13.4-35.0) L 01/19/18 13:53 [place] % (Auto) 11.3 % (0.0-7.3) H 01/19/18 13:53 Eos % (Auto) 0.1 % (0.0-4.3) 01/19/18 13:53 Baso % (Auto) 0.5 % (0.0-1.8) 01/19/18 13:53 Lymph # 0.7 K/mm3 (1.2-5.4) L 01/19/18 13:53 [place] # 0.6 K/mm3 (0.0-0.8) 01/19/18 13:53 Eos # 0.0 K/mm3 (0.0-0.4) 01/19/18 13:53 Baso # 0.0 K/mm3 (0.0-0.1) 01/19/18 13:53 Seg Neutrophils % 74.8 % (40.0-70.0) H 01/19/18 13:53 Seg Neutrophils # 3.7 K/mm3 (1.8-7.7) 01/19/18 13:53 PT 33.5 Sec. (12.2-14.9) H 01/23/18 08:21 INR 3.03 (0.87-1.13) H 01/23/18 08:21 APTT 43.7 Sec. (24.2-36.6) H 01/19/18 15:30 Sodium 144 mmol/L (137-145) 01/23/18 08:21 Potassium 3.3 mmol/L (3.6-5.0) L 01/23/18 08:21 Chloride 102.2 mmol/L (98-107) 01/23/18 08:21 Carbon Dioxide 27 mmol/L (22-30) 01/23/18 08:21 Anion Gap 18 mmol/L 01/23/18 08:21 BUN 61 mg/dL (9-20) H 01/23/18 08:21 Creatinine 1.8 mg/dL (0.8-1.5) H 01/23/18 08:21 Estimated GFR 44 ml/min 01/23/18 08:21 BUN/Creatinine Ratio 34 % 01/23/18 08:21 Glucose 180 mg/dL (75-100) H 01/23/18 08:21 POC Glucose 202 (70-105) H 01/23/18 06:50 Calcium 8.1 mg/dL (8.4-10.2) L 01/23/18 08:21 Magnesium 2.30 mg/dL (1.7-2.3) 01/23/18 08:21 Total Creatine Kinase 440 units/L (55-170) H 01/22/18 08:03 CK-MB (CK-2) 8.1 ng/mL (0.0-4.0) H 01/22/18 08:03 CK-MB (CK-2) Rel Index 1.8 (0-4) 01/22/18 08:03 Troponin T 0.081 ng/mL (0.00-0.029) H D 01/22/18 08:03 NT-Pro-B Natriuret Pep 55150 pg/mL (0-900) H 01/19/18 13:53 Triglycerides 51 mg/dL (2-149) 01/19/18 13:53 Cholesterol 89 mg/dL (50-199) 01/19/18 13:53 LDL Cholesterol Direct 34 mg/dL (50-130) L 01/19/18 13:53 HDL Cholesterol 52 mg/dL (40-59) 01/19/18 13:53 Cholesterol/HDL Ratio 1.71 % 01/19/18 13:53 Urine Color Yellow (Yellow) 01/22/18 05:00 Urine Turbidity Cloudy (Clear) 01/22/18 05:00 Urine pH 5.0 (5.0-7.0) 01/22/18 05:00 Ur Specific [place] 1.009 (1.003-1.030) 01/22/18 05:00 Urine Protein <15 mg/dl mg/dL (Negative) 01/22/18 05:00 Urine Glucose (UA) Neg mg/dL (Negative) 01/22/18 05:00 Urine Ketones Neg mg/dL (Negative) 01/22/18 05:00 Urine Blood Lg (Negative) 01/22/18 05:00 Urine Nitrite Neg (Negative) 01/22/18 05:00 Urine Bilirubin Neg (Negative) 01/22/18 05:00 Urine Urobilinogen < 2.0 mg/dL (<2.0) 01/22/18 05:00 Ur Leukocyte Esterase Mod (Negative) 01/22/18 05:00 Urine WBC (Auto) 11.0 /HPF (0.0-6.0) H 01/22/18 05:00 Urine RBC (Auto) > 182.0 /HPF (0.0-6.0) 01/22/18 05:00 U Epithel Cells (Auto) < 1.0 /HPF (0-13.0) 01/22/18 05:00 Urine Bacteria (Auto) 1+ /HPF (Negative) 01/22/18 05:00 Hyaline Casts 60 /LPF 01/22/18 05:00 Urine Mucus Few /HPF 01/22/18 05:00 Urine Creatinine 47.7 mg/dL (0.1-20.0) H 01/22/18 05:00 Urine Total Protein 16 mg/dL (5-11.8) H 01/22/18 05:00
[2018-01-23] MEDS ORDERED: NACL 0.9% 1000 ML 1,000 ML IV SCH (13:00)
--- NOTE | 2018-01-23 15:01 | Progress Note ---
Assessment and Plan - Patient Problems (1) Other acute kidney failure Current Visit: Yes Status: Acute Plan to address problem: Suspect acute kidney injury Pre-renal azotemia secondary to acute Cardiorenal syndrome/diuresis. FOLLOW-UP ELECTROLYTES AND RENAL FUNCTION WITH GENTLE DIURESIS. (2) Hypernatremia Current Visit: Yes Status: Acute Plan to address problem: Sodium has improved. Follow up Sodium (3) Hypokalemia Current Visit: Yes Status: Acute Plan to address problem: Supplement potassium and follow-up level. Continue low-dose spironolactone (4) Acute on chronic systolic heart failure Current Visit: Yes Status: Acute Plan to address problem: Continue diuretics -I agree with stopping thiazide. Follow up intake and output (5) Anemia Current Visit: Yes Status: Acute Plan to address problem: Follow-up hemoglobin (6) Type 2 diabetes mellitus Current Visit: Yes Status: Acute Plan to address problem: Blood sugar management by primary attending (7) Atrial fibrillation Current Visit: Yes Status: Chronic Plan to address problem: Rate control/anticoagulation per cardiology (8) HTN (hypertension) Current Visit: Yes Status: Chronic Plan to address problem: Follow blood pressure on current medications Subjective Date of service: 01/23/18 Principal diagnosis: HF Interval history: Patient seen lying in bed. No new complaints. Feels a bit better. No shortness of breath at rest Objective - Exam Narrative Exam: Elderly -[place] lying in Bed in no acute distress HEENT: NCAT, pink oral mucous membrane Neck: Supple, no venous distention CVS: S1S2 RRR with no murmur, rub or gallop Chest: Diminished breath sounds Abdomen: Protuberant, soft, mild edema, nontender, no organomegaly, bowel sounds are present Extremities: 2+ edema extending up to the thighs Skin warm and dry with no rash. Pigmentary changes in legs Neuro: Awake, alert no focal deficits but has memory impairment - Vital Signs Vital signs: Vital Signs - 12hr 01/23/18 01/23/18 01/23/18 03:59 08:14 09:01 Temperature 97.9 F 98.3 F Pulse Rate 49 L 48 L 61 Respiratory 20 20 Rate Blood Pressure 144/64 149/78 149/78 Blood Pressure [Right] O2 Sat by Pulse 98 95 Oximetry 01/23/18 01/23/18 01/23/18 09:55 09:57 09:58 Temperature Pulse Rate 61 61 61 Respiratory Rate Blood Pressure 149/78 149/78 149/78 Blood Pressure [Right] O2 Sat by Pulse Oximetry 01/23/18 01/23/18 01/23/18 09:59 13:00 14:05 Temperature 98.1 F Pulse Rate 61 56 L 56 L Respiratory 22 Rate Blood Pressure 149/78 129/74 Blood Pressure 129/74 [Right] O2 Sat by Pulse 100 Oximetry - Lab 01/19/18 13:53 01/23/18 08:21 Most recent lab results Calcium 8.1 mg/dL (8.4-10.2) L 01/23/18 08:21 Magnesium 2.30 mg/dL (1.7-2.3) 01/23/18 08:21 Urine Creatinine 47.7 mg/dL (0.1-20.0) H 01/22/18 05:00 Urine Total Protein 16 mg/dL (5-11.8) H 01/22/18 05:00
[2018-01-23] MEDS: SODIUM CHLORIDE FLUSH SYRINGE 10 ML IV SCH (21:09)
[2018-01-23] MEDS: LANTUS SUB-Q SCH (21:09)
[2018-01-24] MEDS: SODIUM CHLORIDE FLUSH SYRINGE 10 ML IV SCH (01:59)
[2018-01-24] MEDS: LASIX PO SCH ×2 (06:42→17:43)
[2018-01-24 07:56] LABS: INR 3.09 (0.87-1.13)
[2018-01-24 08:10] LABS: Calcium 8.3 mg/dL (8.4-10.2)
[2018-01-24] MEDS: APRESOLINE PO SCH ×2 (08:10→17:42)
--- NOTE | 2018-01-24 11:33 | Progress Note ---
Assessment and Plan - Patient Problems (1) Acute on chronic systolic heart failure Current Visit: Yes Status: Acute Plan to address problem: Continue diuresis with lasix 40mg po bid, metolazone d/elizabeth due to declining eGFR , hypokalemia. Follow up intake and output (2) Other acute kidney failure Current Visit: Yes Status: Acute Plan to address problem: acute kidney injury Pre-renal azotemia secondary to acute Cardiorenal syndrome/ diuresis. stabilizing eGFR after metolazone d/elizabeth. cont supportive care for NEDRA (3) Hypernatremia Current Visit: Yes Status: Acute Plan to address problem: Sodium has improved. Follow up Sodium (4) Hypokalemia Current Visit: Yes Status: Acute Plan to address problem: Supplement potassium and follow-up level. Continue low-dose spironolactone (5) Anemia Current Visit: Yes Status: Chronic Plan to address problem: Follow-up hemoglobin (6) HTN (hypertension) Current Visit: Yes Status: Acute Qualifiers: Hypertension type: essential hypertension Qualified Code(s): I10 - Essential (primary) hypertension Plan to address problem: Follow blood pressure on current medications (7) Type 2 diabetes mellitus Current Visit: Yes Status: Chronic Plan to address problem: Blood sugar management by primary attending (8) Atrial fibrillation Current Visit: Yes Status: Acute Qualifiers: Atrial fibrillation type: persistent Qualified Code(s): I48.1 - Persistent atrial fibrillation Plan to address problem: Rate control/anticoagulation per cardiology Subjective Date of service: 01/24/18 Principal diagnosis: HF Interval history: Pt awake, alert, in no acute respiratory distress Objective - Vital Signs Vital signs: Vital Signs - 12hr 01/24/18 01/24/18 01/24/18 00:04 01:00 04:16 Temperature 98.3 F 98.4 F Pulse Rate 49 L 47 L 47 L Respiratory 18 18 Rate Blood Pressure 183/76 141/57 O2 Sat by Pulse 100 99 Oximetry 01/24/18 04:18 Temperature Pulse Rate 47 L Respiratory Rate Blood Pressure O2 Sat by Pulse 100 Oximetry - General Appearance General appearance: well-developed, well-nourished, appears stated age EENT: ATNC, PERRL, mucous membranes moist Neck: no JVD Respiratory: Present: Decreased Breath Sounds Cardiology: regular, S1S2 Gastrointestinal: normoactive bowel sounds Integumentary: no rash, other (2+ edema b/l LE) Neurologic: no focal deficit, alert and oriented x3, strength 5/5, CN 3-12 intact Psychiatric: mood/affect appropriate, cooperative - Lab 01/19/18 13:53 01/24/18 07:23 Most recent lab results Calcium 8.3 mg/dL (8.4-10.2) L 01/24/18 07:23 Magnesium 2.30 mg/dL (1.7-2.3) 01/23/18 08:21 Urine Creatinine 47.7 mg/dL (0.1-20.0) H 01/22/18 05:00 Urine Total Protein 16 mg/dL (5-11.8) H 01/22/18 05:00
--- NOTE | 2018-01-24 11:39 | Discharge Summary ---
Providers - Providers Date of Admission: 01/19/18 16:54 Attending physician: NIDA HENRY MD 01/19/18 15:20 Consult to Physician [CONS] Urgent Comment: KINGA NOTIFELIAS Consulting Provider: KINGA HEARD Physician Instructions: Reason For Exam: chf exacerbation, chronic afib 01/21/18 12:32 Consult to Physician [CONS] Routine Comment: Consulting Provider: RHIANNON JASON Physician Instructions: Reason For Exam: copd exacerbation Consult to Physician [CONS] Routine Comment: Consulting Provider: XENA MARQUIS Physician Instructions: Reason For Exam: nedra 01/23/18 12:17 Occupational Therapy Evaluate and Treat [CONS] Routine Comment: Reason For Exam: DEBILITY Physical Therapy Evaluation and Treat [CONS] Routine Comment: Reason For Exam: DEBILITY 01/23/18 20:15 Consult to Wound/ET Nurse [CONS] Routine Reason For Exam: wound eval abrasion right forearm. Primary care physician: SEO INTERN Hospitalization Reason for admission: CHF/COPD EXACERBATION Condition: Stable Hospital course: 82 YO Female with Systolic CHF, HTN, HLD, Obesity, Chronic Respiratory Failure on Home Oxygen, Atrial Fib on therapeutic anticoagulation, presents to ED for evaluation. Pt states that he has experienced shortness of breath, as well as leg swelling and scrotal swelling over the past 10 days with worsening symptoms over the past 5 days. Pt was seen and evaluated in his cardiologists office and was found to have CHF decompensation, and was sent to [facility] for further care and evaluation. Pt seen and evaluated in ED and found to have CHF decompensation, as well as Acute Respiratory failure. Pt Denies fever, chills, CP, Palpitations , NVE, Trauma, falls, syncope, productive cough, or recent ill contacts. Cardiology consulted in ED. Pt admitted to telemetry. Pt daughter at bedside. Discussed patient prognosis, and care plan with patient and daughter. Pt daughter also informed of Code status, and End of Life care. Pt desires to be a Full Code. (1) Acute and chronic systolic CHF exacerbation/nonischemic cardiomyopathy/ppm * Cardiology input noted, Strict I/O, daily weight, monitor uop q shift to ensure negative fluid balance, afterload reduction, diuresis, supplemental oxygen * EF 20% * Zaroxolyn Stopped secondary to worsening renal function * Coreg decreased to 12.5 twice a day for better BP control increase hydralazine 5omg 3 times a day, due to bradiacardia * Patient improved remarkably and is stable for discharge at this time (2) Acute on chronic respiratory failure * Supplemental oxygen, nebulizer therapy, NIPPV as clinically indicated, diuresis, Chest X ray-shows volume overload clinical improvement noted with Lasix. * Patient on home O2 supplementation * Patient was treated with IV steroids and subsequently changed to prednisone orally with tapering dose. 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 Stable (5)HTN (hypertension) * monitor bp q shift, resume pre-hospital antihypertensive therapy (6) GERD (gastroesophageal reflux disease) * PPI therapy (7) Chronic Atrial fibrillation * Therapeutic anticoagulation, cardiology consulted, (8) Chronic Debility * PT/OT-patient refused rehabilitation placement Home (9)Dementia * Stable continue current medications (10)secondary coagulopathy INR 3.03. HOLD TODAYS COUMADIN and recheck on discharge. Disposition: DC/[place]-03 [facility] Time spent for discharge: 35 mins Core Measure Documentation - Palliative Care Palliative Care/ Comfort Measures: Not Applicable - Core Measures Any of the following diagnoses?: none - VTE Discharge Requirements Deep Vein Thrombosis/Pulmonary Embolism Present on Admission: No - Heart Failure Discharge Requirements CHRISTIANA/ARB for LVSD if EF <40%: No Reason for no CHRISTIANA/ARB: Renal impairment Beta aurora at discharge: Yes Exam - Physical Exam Narrative exam: VITAL SIGNS: Reviewed. GENERAL: The patient appeared chronically ill otherwise above. Distress. Vital signs as documented. HEAD: No signs of head trauma. EYES: Pupils are equal. Extraocular motions intact. EARS: Hearing grossly intact. MOUTH: Oropharynx is normal. NECK: No adenopathy, no JVD. CHEST: Chest with diminished breath sounds bilaterally. wheezing and no rales , or rhonchi. CARDIAC: Regular rate and rhythm. S1 and S2, without murmurs, gallops, or rubs. VASCULAR: Peripheral pulses. 1+Edema. Peripheral pulses normal and equal in all extremities. ABDOMEN: Soft, without detectable tenderness. No sign of distention. No rebound or guarding, and no masses palpated. Bowel Sounds normal. MUSCULOSKELETAL: Good range of motion of all major joints. Extremities without clubbing, cyanosis. 1+ edema. NEUROLOGIC EXAM: Awake and oriented to person place. No focal sensory or strength deficits. Speech normal. Follows commands. PSYCHIATRIC: Mood anxious SKIN: No rash or lesions. - Constitutional Vitals: Temp Pulse Resp BP Pulse Ox 98.4 F 47 L 18 141/57 100 01/24/18 04:16 01/24/18 04:18 01/24/18 04:16 01/24/18 04:16 01/24/18 04:18 Plan Activity: advance as tolerated, fall precautions Diet: regular Special Instructions: record daily BP diary, record blood sugar diary, physical therapy, occupational therapy Follow up with: PRIMARY CARE, [Primary Care Provider] - 7 Days Forms: Warfarin Discharge Instruction
[2018-01-24] MEDS: HALFPRIN EC PO SCH (11:40)
[2018-01-24] MEDS: K-DUR PO SCH (11:40)
[2018-01-24] MEDS: DIOVAN PO SCH (11:40)
[2018-01-24] MEDS: ALDACTONE PO SCH (11:40)
[2018-01-24] MEDS: IMDUR PO SCH (11:40)
[2018-01-24] MEDS: COREG PO SCH (11:40)
--- NOTE | 2018-01-24 11:55 | Progress Note ---
Assessment and Plan Assessment: Acute on chronic systolic heart failure Nonischemic cardiomyopathy NSTEMI type II Chronic atrial fibrillation with CVR - anticoagulated with coumadin PPM in situ HTN HLP Chronic respiratory failure, on home O2 Dementia Plan: cont present cardiac management. The patient has been seen in conjunction with Dr. Camejo who agrees with the assessment and plan of care. Subjective Date of service: 01/24/18 Principal diagnosis: HF Interval history: pt resting comfortably in bed, wheezing, no current cardiac complaints. Objective Last Vital Signs Temp 98.4 F 01/24/18 04:16 Pulse 47 L 01/24/18 04:18 Resp 18 01/24/18 04:16 BP 141/57 01/24/18 04:16 Pulse Ox 100 01/24/18 04:18 - Physical Examination General: No Apparent Distress HEENT: Positive: PERRL, Normocephaly, Mucus Membranes Moist Neck: Positive: neck supple, trachea midline Cardiac: Positive: Reg Rate and Rhythm, S1/S2 Lungs: Positive: Wheezes Neuro: Positive: Grossly Intact Abdomen: Positive: Soft. Negative: Tender Skin: Negative: Wound Extremities: Absent: edema - Labs and Meds Coagulation 01/24/18 Range/Units 07:23 PT 34.0 H (12.2-14.9) Sec. INR 3.09 H (0.87-1.13) Comprehensive Metabolic Panel 01/24/18 Range/Units 07:23 Sodium 144 (137-145) mmol/L Potassium 3.3 L (3.6-5.0) mmol/L Chloride 102.8 (98-107) mmol/L Carbon Dioxide 27 (22-30) mmol/L BUN 65 H (9-20) mg/dL Creatinine 1.7 H (0.8-1.5) mg/dL Glucose 113 H (75-100) mg/dL Calcium 8.3 L (8.4-10.2) mg/dL - Imaging and Cardiology EKG: report reviewed, image reviewed Echo: report reviewed (01/19/2018: EF 20-25%, LV mod dilated, abnormal diastolic function, mild MR, LA mod dilated, mod TR, severe pulm HTN with RVSP 73mmHg, RV systolic function mod reduced, RV slightly dilated; 06/2016 showed EF 40-45%, RV mildly enlarged, mild AR, mod MR, mod TR. ) Cardiac cath: report reviewed ([facility] done 03/2010 showed mild LI, EF 30-35%. ) - Telemetry EKG Rhythm: Sinus Rhythm
[2018-01-24] MEDS ORDERED: K-DUR PO ONE (12:00)
--- NOTE | 2018-01-24 14:25 | Ultrasound Report ---
FINAL REPORT EXAM: US RENAL BILAT HISTORY: Acute kidney injury TECHNIQUE: Directed sonography of the retroperitoneum. PRIORS: None. FINDINGS: The right kidney measures 9.6 cm in longest dimension and the left kidney measures 11.3 cm in longest dimension. Renal cortical echotexture within normal limits. No intrarenal calculi, significant hydronephrosis or abnormal perinephric fluid collections. Visualized urinary bladder decompressed by indwelling Perry catheter and poorly visualized. Probable moderate bilateral pleural effusions incidentally noted. IMPRESSION: 1. No acute renal findings. 2. Bilateral pleural effusions.
--- NOTE | 2018-01-24 15:21 | Progress Note ---
Assessment and Plan 82 y/o male with CHF, with COPD and dementia. 1. Wean Steroids to daily starting tomorrow 2. Daily net negative state if possible 3. Supplemental O2 Subjective Date of service: 01/24/18 Principal diagnosis: HF Interval history: No acute events. Still on steroids. No family at bedside. Objective Vital Signs - 12hr 01/24/18 01/24/18 01/24/18 04:16 04:18 09:00 Temperature 98.4 F Pulse Rate 47 L 47 L 50 L Pulse Rate [ Apical] Respiratory 18 Rate Blood Pressure 141/57 O2 Sat by Pulse 99 100 Oximetry 01/24/18 01/24/18 01/24/18 10:00 11:40 12:14 Temperature 98.6 F Pulse Rate 50 L 50 L Pulse Rate [ 50 L Apical] Respiratory 22 20 Rate Blood Pressure 132/67 155/63 O2 Sat by Pulse 99 100 Oximetry Constitutional: no acute distress, alert Eyes: non-icteric ENT: oropharynx moist, other (Mallampati 4) Neck: no JVD Ascultation: Bilateral: diminished breath sounds, rales (both bases) Percussion: Bilateral: not dull Cardiovascular: irregular rhythm, murmur noted Integumentary: normal Extremities: no cyanosis, edema Neurologic: normal mental status (poor recall), non-focal exam, CN II-XII normal CBC and BMP: 01/19/18 13:53 01/24/18 07:23 ABG, PT/INR, D-dimer: PT/INR, D-dimer PT 34.0 Sec. (12.2-14.9) H 01/24/18 07:23 INR 3.09 (0.87-1.13) H 01/24/18 07:23 Abnormal lab findings: Abnormal Labs 01/19/18 01/19/18 01/19/18 13:53 13:53 15:30 Hgb 10.1 L Hct 32.3 L MCV 72 L MCH 23 L MCHC 31 L RDW 20.5 H Lymph % (Auto) 13.3 L [place] % (Auto) 11.3 H Lymph # 0.7 L Seg Neutrophils % 74.8 H PT 29.5 H INR 2.59 H APTT 43.7 H Sodium Potassium Chloride BUN 47 H Creatinine Glucose 58 L POC Glucose Calcium Total Creatine Kinase CK-MB (CK-2) Troponin T 0.127 H* NT-Pro-B Natriuret Pep 49605 H LDL Cholesterol Direct 34 L Urine WBC (Auto) Urine Creatinine Urine Total Protein 01/19/18 01/19/18 01/19/18 15:46 16:49 17:52 Hgb Hct MCV MCH MCHC RDW Lymph % (Auto) [place] % (Auto) Lymph # Seg Neutrophils % PT INR APTT Sodium Potassium Chloride BUN Creatinine Glucose 43 L POC Glucose 43 L 137 H Calcium Total Creatine Kinase CK-MB (CK-2) Troponin T NT-Pro-B Natriuret Pep LDL Cholesterol Direct Urine WBC (Auto) Urine Creatinine Urine Total Protein 01/19/18 01/19/18 01/20/18 18:31 20:27 06:24 Hgb Hct MCV MCH MCHC RDW Lymph % (Auto) [place] % (Auto) Lymph # Seg Neutrophils % PT INR APTT Sodium Potassium Chloride BUN 45 H Creatinine 1.6 H Glucose POC Glucose 121 H Calcium 8.2 L Total Creatine Kinase 709 H CK-MB (CK-2) 14.0 H Troponin T 0.124 H* NT-Pro-B Natriuret Pep LDL Cholesterol Direct Urine WBC (Auto) Urine Creatinine Urine Total Protein 01/20/18 01/20/18 01/20/18 07:50 16:48 17:57 Hgb Hct MCV MCH MCHC RDW Lymph % (Auto) [place] % (Auto) Lymph # Seg Neutrophils % PT 30.6 H INR 2.71 H APTT Sodium Potassium Chloride BUN Creatinine Glucose POC Glucose 141 H Calcium Total Creatine Kinase 457 H CK-MB (CK-2) Troponin T NT-Pro-B Natriuret Pep LDL Cholesterol Direct Urine WBC (Auto) Urine Creatinine Urine Total Protein 01/20/18 01/21/18 01/21/18 21:55 06:47 06:47 Hgb Hct MCV MCH MCHC RDW Lymph % (Auto) [place] % (Auto) Lymph # Seg Neutrophils % PT 30.8 H INR 2.73 H APTT Sodium 147 H Potassium 3.5 L Chloride BUN 48 H Creatinine 1.7 H Glucose 40 L POC Glucose 181 H Calcium 8.0 L Total Creatine Kinase CK-MB (CK-2) Troponin T NT-Pro-B Natriuret Pep LDL Cholesterol Direct Urine WBC (Auto) Urine Creatinine Urine Total Protein 01/21/18 01/22/18 01/22/18 21:39 05:00 05:00 Hgb Hct MCV MCH MCHC RDW Lymph % (Auto) [place] % (Auto) Lymph # Seg Neutrophils % PT INR APTT Sodium Potassium Chloride BUN Creatinine Glucose POC Glucose 150 H Calcium Total Creatine Kinase CK-MB (CK-2) Troponin T NT-Pro-B Natriuret Pep LDL Cholesterol Direct Urine WBC (Auto) 11.0 H Urine Creatinine 47.7 H Urine Total Protein 16 H 01/22/18 01/22/18 01/22/18 06:07 08:03 08:03 Hgb Hct MCV MCH MCHC RDW Lymph % (Auto) [place] % (Auto) Lymph # Seg Neutrophils % PT 28.2 H INR 2.45 H APTT Sodium Potassium 3.5 L Chloride 96.8 L BUN 54 H Creatinine 1.7 H Glucose 175 H POC Glucose 176 H Calcium 8.3 L Total Creatine Kinase 440 H CK-MB (CK-2) 8.1 H Troponin T 0.081 H D NT-Pro-B Natriuret Pep LDL Cholesterol Direct Urine WBC (Auto) Urine Creatinine Urine Total Protein 01/22/18 01/22/18 01/22/18 12:07 17:00 22:12 Hgb Hct MCV MCH MCHC RDW Lymph % (Auto) [place] % (Auto) Lymph # Seg Neutrophils % PT INR APTT Sodium Potassium Chloride BUN Creatinine Glucose POC Glucose 200 H 257 H 228 H Calcium Total Creatine Kinase CK-MB (CK-2) Troponin T NT-Pro-B Natriuret Pep LDL Cholesterol Direct Urine WBC (Auto) Urine Creatinine Urine Total Protein 01/23/18 01/23/18 01/23/18 05:55 06:50 08:21 Hgb Hct MCV MCH MCHC RDW Lymph % (Auto) [place] % (Auto) Lymph # Seg Neutrophils % PT 33.5 H INR 3.03 H APTT Sodium Potassium Chloride BUN Creatinine Glucose POC Glucose 198 H 202 H Calcium Total Creatine Kinase CK-MB (CK-2) Troponin T NT-Pro-B Natriuret Pep LDL Cholesterol Direct Urine WBC (Auto) Urine Creatinine Urine Total Protein 01/23/18 01/23/18 01/23/18 08:21 12:20 15:42 Hgb Hct MCV MCH MCHC RDW Lymph % (Auto) [place] % (Auto) Lymph # Seg Neutrophils % PT INR APTT Sodium Potassium 3.3 L Chloride BUN 61 H Creatinine 1.8 H Glucose 180 H POC Glucose 226 H 204 H Calcium 8.1 L Total Creatine Kinase CK-MB (CK-2) Troponin T NT-Pro-B Natriuret Pep LDL Cholesterol Direct Urine WBC (Auto) Urine Creatinine Urine Total Protein 01/23/18 01/24/18 01/24/18 21:46 07:23 07:23 Hgb Hct MCV MCH MCHC RDW Lymph % (Auto) [place] % (Auto) Lymph # Seg Neutrophils % PT 34.0 H INR 3.09 H APTT Sodium Potassium 3.3 L Chloride BUN 65 H Creatinine 1.7 H Glucose 113 H POC Glucose 205 H Calcium 8.3 L Total Creatine Kinase CK-MB (CK-2) Troponin T NT-Pro-B Natriuret Pep LDL Cholesterol Direct Urine WBC (Auto) Urine Creatinine Urine Total Protein
[2018-01-24 17:12] VITALS: BP 137/67
== END 2018-01-24 19:00 | disposition home health service (06) | DRG 280 ==
LOC: ED 12:52 → 4A 16:54
PROVIDERS: ADMIT Internal Medicine; ATTEND Internal Medicine
DX: I21.A1 Myocardial infarction type 2 (principal); N17.0 Acute kidney failure with tubular necrosis; J96.21 Acute and chronic respiratory failure with hypoxia; I50.23 Acute on chronic systolic (congestive) heart failure; E87.0 Hyperosmolality and hypernatremia; J44.1 Chronic obstructive pulmonary disease with (acute) exacerbation; D68.9 Coagulation defect, unspecified; I42.9 Cardiomyopathy, unspecified; I11.0 Hypertensive heart disease with heart failure; M19.90 Unspecified osteoarthritis, unspecified site; K21.9 Gastro-esophageal reflux disease without esophagitis; E11.9 Type 2 diabetes mellitus without complications; I48.2 Chronic atrial fibrillation; E78.5 Hyperlipidemia, unspecified; F03.90 Unspecified dementia, unspecified severity, without behavioral disturbance, psychotic disturbance, mood disturbance, and anxiety; I08.3 Combined rheumatic disorders of mitral, aortic and tricuspid valves; E66.9 Obesity, unspecified; G47.33 Obstructive sleep apnea (adult) (pediatric); E87.6 Hypokalemia; D64.9 Anemia, unspecified; Z79.899 Other long term (current) drug therapy; Z87.891 Personal history of nicotine dependence; Z95.0 Presence of cardiac pacemaker; Z82.49 Family history of ischemic heart disease and other diseases of the circulatory system; Z79.4 Long term (current) use of insulin; Z99.81 Dependence on supplemental oxygen; Z79.01 Long term (current) use of anticoagulants; Z79.82 Long term (current) use of aspirin; Z88.0 Allergy status to penicillin; Z68.39 Body mass index [BMI] 39.0-39.9, adult
CPT/HCPCS: 36415; 71046; 76770; 80048; 80061; 81001; 82550; 82553; 82570; 82947; 82962; 83735; 83880; 84156; 84484; 85025; 85610; 85730; 93005; 93010; 93306; 94640; 94760; 96374; 96375; 96376; 99285; A9270-GY; G8978-GP; G8979-GP; J1815; J1940; J2930